=== PATIENT | male | born 1945 | race Caucasian/White ===

== ENCOUNTER 2018-03-28 05:20 | Inpatient (IN) ==
--- NOTE | 2018-03-28 06:55 | ED ---
HPI General Chief complaint: Weakness Stated complaint: Bleeding/evac Time Seen by Provider: 03/28/18 06:37 Source: patient Mode of arrival: EMS Limitations: no limitations History of Present Illness HPI narrative: Patient reports waking up around 2 AM in order to have a bowel movement. He reports rectal bleeding started in the last for couple hours. He takes a baby aspirin daily. He reports colonoscopy within the last 6 months or so however does not recall details, he believes it might of been a polyp. No abdominal pain. No nausea vomiting fever. No chest pain shortness breath or headache. Onset (ago): hour(s) (2) Radiation: non-radiation Severity: mild Related Data Home Medications Medication Instructions Recorded Confirmed aspirin 81 mg PO DAILY 03/28/18 03/28/18 metformin 1,000 mg PO BID 03/28/18 03/28/18 Previous Rx's Medication Instructions Recorded pantoprazole [Protonix] 40 mg PO DAILY 30 Days #30 tab 03/30/18 Allergies Allergy/AdvReac Type Severity Reaction Status Date / Time codeine Allergy Severe burning Verified 03/28/18 05:25 sensation upper trunk area acetaminophen AdvReac Intermediate SHAKING Verified 03/28/18 05:25 hydrocodone AdvReac Intermediate SHAKING Verified 03/28/18 05:25 Review of Systems Except as stated in HPI: all other systems reviewed are negative Constitutional Denies fever(s) PMFSH Medical History Medical History Diabetes (Acute) Hernia (Acute) Melanoma (Acute) Prostate CA (Acute) Surgical History Surgical History History of hernia repair (Acute) Social History Social History Substance History: No History of Abuse Second Hand Smoke Exposure: No Smoking Status: Former smoker Tobacco Type: Cigarettes How Often Do You Have a Drink Containing Alcohol: Never Recent Travel in [facility] within the Last 8 Weeks: No Recent Out of Country Travel within the Last 8 Weeks: No Immunization History Tetanus Immunization: >5 Years Hx Influenza Vaccine This Season: Yes Exam Narrative Exam Narrative: GENERAL: 72-year-old male well-nourished well-developed no acute distress RECTAL: Guaiac positive stool with bright red blood in the rectal wall. Hard stool present SKIN: Focused skin assessment warm/dry. HEAD: Atraumatic. Normocephalic. EYES: Pupils equal and round. No scleral icterus. No injection or drainage. ENT: No nasal bleeding or discharge. Mucous membranes pink and moist. NECK: Trachea midline. No JVD. CARDIOVASCULAR: Regular rate and rhythm. No murmur appreciated. RESPIRATORY: No accessory muscle use. Clear to auscultation. Breath sounds equal bilaterally. GASTROINTESTINAL: Abdomen soft, non-tender, nondistended. Hepatic and splenic margins not palpable. MUSCULOSKELETAL: No obvious deformities. No clubbing. No cyanosis. No edema. NEUROLOGICAL: Awake and alert. No obvious cranial nerve deficits. Motor grossly within normal limits. Normal speech. PSYCHIATRIC: Appropriate mood and affect; insight and judgment normal. Procedures Hemaprompt Stool Procedural Steps Taken: controls appropriately positive and negative Hemaprompt Stool Result: positive Course Initial Documented Vital Signs Temperature 97.9 F 03/28/18 05:26 Pulse Rate 94 H 03/28/18 05:26 Respiratory Rate 20 03/28/18 05:26 Blood Pressure 183/87 H 03/28/18 05:26 Pulse Oximetry 97 03/28/18 05:26 Last Documented Vital Signs Temperature 98.0 F 03/30/18 12:00 Pulse Rate 72 03/30/18 12:00 Respiratory Rate 20 03/30/18 12:00 Blood Pressure 130/66 03/30/18 12:00 Pulse Oximetry 96 03/30/18 12:00 Medical Decision Making MDM Narrative Medical decision making narrative: 72-year-old male with rectal bleed and abdominal pain. Protonix 80 mg IV given. Normal saline solution 100 cc an hour. Pt will be admitted for treatment and workup for GI bleed. Lab Data Result diagrams: 03/30/18 08:50 03/30/18 08:50 Lab Results 03/28/18 03/28/18 03/28/18 Range/Units 05:36 07:05 07:05 WBC 9.0 (4.0-11.0) th/mm3 RBC 4.61 (4.50-5.90) mil/mm3 Hgb 13.9 (13.0-17.0) gm/dL Hct 41.8 (39.0-51.0) % MCV 90.5 (80.0-100.0) fL MCH 30.2 (27.0-34.0) pg MCHC 33.3 (32.0-36.0) % RDW 14.2 (11.6-17.2) % Plt Count 272 (150-450) th/mm3 MPV 8.6 (7.0-11.0) fL Neut % (Auto) 74.0 H (16.0-70.0) % Lymph % (Auto) 16.4 (9.0-44.0) % Archer % (Auto) 5.6 (0.0-8.0) % Eos % (Auto) 3.3 (0.0-4.0) % Baso % (Auto) 0.7 (0.0-2.0) % Neut # (Auto) 6.7 (1.8-7.7) th/mm3 Lymph # (Auto) 1.5 (1.0-4.8) th/mm3 Archer # (Auto) 0.5 (0.0-0.9) th/mm3 Eos # (Auto) 0.3 (0.0-0.4) th/mm3 Baso # (Auto) 0.1 (0.0-0.2) th/mm3 WBC Differential . Differential Comment Auto diff final PT 9.9 (9.8-11.6) sec INR 1.0 Ratio Sodium (136-145) meq/L Potassium (3.5-5.1) meq/L Chloride (98-107) meq/L Carbon Dioxide (21.0-32.0) meq/L Anion Gap (5-15) meq/L BUN (7-18) mg/dL Creatinine (0.60-1.30) mg/dL Estimated GFR (>89) mL/min POC Glucose 136 H (68-110) mg/dl Random Glucose (74-106) mg/dL Calcium (8.5-10.1) mg/dL Total Bilirubin (0.2-1.0) mg/dL AST (15-37) U/L ALT (12-78) U/L Alkaline Phosphatase (45-117) U/L Total Protein (6.4-8.2) g/dL Albumin (3.4-5.0) g/dL Urine Color (Yellw/Straw) Urine Clarity (Clear) Urine pH (5.0-8.5) Ur Specific [place]ari[place] (1.002-1.035) Urine Protein (Neg-Trace) mg/dL Urine Glucose (UA) (Negative) mg/dL Urine Ketones (Negative) mg/dL Urine Occult Blood (Negative) Urine Nitrate (Negative) Urine Bilirubin (Negative) Urine Urobilinogen (Less than 2) mg/dL Ur Leukocyte Esterase (Negative) Urine RBC (0-3) /hpf Urine WBC (0-5) /hpf Blood Type Blood Type Recheck Antibody Screen 03/28/18 03/28/18 03/28/18 Range/Units 07:05 13:07 13:09 WBC (4.0-11.0) th/mm3 RBC (4.50-5.90) mil/mm3 Hgb (13.0-17.0) gm/dL Hct (39.0-51.0) % MCV (80.0-100.0) fL MCH (27.0-34.0) pg MCHC (32.0-36.0) % RDW (11.6-17.2) % Plt Count (150-450) th/mm3 MPV (7.0-11.0) fL Neut % (Auto) (16.0-70.0) % Lymph % (Auto) (9.0-44.0) % Archer % (Auto) (0.0-8.0) % Eos % (Auto) (0.0-4.0) % Baso % (Auto) (0.0-2.0) % Neut # (Auto) (1.8-7.7) th/mm3 Lymph # (Auto) (1.0-4.8) th/mm3 Archer # (Auto) (0.0-0.9) th/mm3 Eos # (Auto) (0.0-0.4) th/mm3 Baso # (Auto) (0.0-0.2) th/mm3 WBC Differential Differential Comment PT (9.8-11.6) sec INR Ratio Sodium 140 (136-145) meq/L Potassium 4.0 (3.5-5.1) meq/L Chloride 103 (98-107) meq/L Carbon Dioxide 26.7 (21.0-32.0) meq/L Anion Gap 10 (5-15) meq/L BUN 13 (7-18) mg/dL Creatinine 0.76 (0.60-1.30) mg/dL Estimated GFR Greater than 89 (>89) mL/min POC Glucose 106 (68-110) mg/dl Random Glucose 120 H (74-106) mg/dL Calcium 9.0 (8.5-10.1) mg/dL Total Bilirubin 0.6 (0.2-1.0) mg/dL AST 20 (15-37) U/L ALT 28 (12-78) U/L Alkaline Phosphatase 71 (45-117) U/L Total Protein 7.8 (6.4-8.2) g/dL Albumin 4.4 (3.4-5.0) g/dL Urine Color Yellow (Yellw/Straw) Urine Clarity Clear (Clear) Urine pH 8.0 (5.0-8.5) Ur Specific [place] 1.029 (1.002-1.035) Urine Protein Negative (Neg-Trace) mg/dL Urine Glucose (UA) Negative (Negative) mg/dL Urine Ketones Negative (Negative) mg/dL Urine Occult Blood Negative (Negative) Urine Nitrate Negative (Negative) Urine Bilirubin Negative (Negative) Urine Urobilinogen Less than 2 (Less than 2) mg/dL Ur Leukocyte Esterase Negative (Negative) Urine RBC 1 (0-3) /hpf Urine WBC 1 (0-5) /hpf Blood Type Blood Type Recheck Antibody Screen 03/28/18 03/28/18 03/28/18 Range/Units 14:26 14:26 17:59 WBC (4.0-11.0) th/mm3 RBC (4.50-5.90) mil/mm3 Hgb 13.3 (13.0-17.0) gm/dL Hct 40.3 (39.0-51.0) % MCV (80.0-100.0) fL MCH (27.0-34.0) pg MCHC (32.0-36.0) % RDW (11.6-17.2) % Plt Count (150-450) th/mm3 MPV (7.0-11.0) fL Neut % (Auto) (16.0-70.0) % Lymph % (Auto) (9.0-44.0) % Archer % (Auto) (0.0-8.0) % Eos % (Auto) (0.0-4.0) % Baso % (Auto) (0.0-2.0) % Neut # (Auto) (1.8-7.7) th/mm3 Lymph # (Auto) (1.0-4.8) th/mm3 Archer # (Auto) (0.0-0.9) th/mm3 Eos # (Auto) (0.0-0.4) th/mm3 Baso # (Auto) (0.0-0.2) th/mm3 WBC Differential Differential Comment PT (9.8-11.6) sec INR Ratio Sodium (136-145) meq/L Potassium (3.5-5.1) meq/L Chloride (98-107) meq/L Carbon Dioxide (21.0-32.0) meq/L Anion Gap (5-15) meq/L BUN (7-18) mg/dL Creatinine (0.60-1.30) mg/dL Estimated GFR (>89) mL/min POC Glucose 135 H (68-110) mg/dl Random Glucose (74-106) mg/dL Calcium (8.5-10.1) mg/dL Total Bilirubin (0.2-1.0) mg/dL AST (15-37) U/L ALT (12-78) U/L Alkaline Phosphatase (45-117) U/L Total Protein (6.4-8.2) g/dL Albumin (3.4-5.0) g/dL Urine Color (Yellw/Straw) Urine Clarity (Clear) Urine pH (5.0-8.5) Ur Specific Darien (1.002-1.035) Urine Protein (Neg-Trace) mg/dL Urine Glucose (UA) (Negative) mg/dL Urine Ketones (Negative) mg/dL Urine Occult Blood (Negative) Urine Nitrate (Negative) Urine Bilirubin (Negative) Urine Urobilinogen (Less than 2) mg/dL Ur Leukocyte Esterase (Negative) Urine RBC (0-3) /hpf Urine WBC (0-5) /hpf Blood Type O Positive Blood Type Recheck Required Antibody Screen Negative 03/28/18 03/28/18 03/29/18 Range/Units 19:22 21:48 07:37 WBC 6.0 (4.0-11.0) th/mm3 RBC 4.04 L (4.50-5.90) mil/mm3 Hgb 13.6 12.0 L (13.0-17.0) gm/dL Hct 41.0 36.1 L (39.0-51.0) % MCV 89.3 (80.0-100.0) fL MCH 29.8 (27.0-34.0) pg MCHC 33.4 (32.0-36.0) % RDW 14.1 (11.6-17.2) % Plt Count 227 (150-450) th/mm3 MPV 8.3 (7.0-11.0) fL Neut % (Auto) 63.6 (16.0-70.0) % Lymph % (Auto) 22.7 (9.0-44.0) % Archer % (Auto) 8.7 H (0.0-8.0) % Eos % (Auto) 4.5 H (0.0-4.0) % Baso % (Auto) 0.5 (0.0-2.0) % Neut # (Auto) 3.8 (1.8-7.7) th/mm3 Lymph # (Auto) 1.4 (1.0-4.8) th/mm3 Archer # (Auto) 0.5 (0.0-0.9) th/mm3 Eos # (Auto) 0.3 (0.0-0.4) th/mm3 Baso # (Auto) 0.0 (0.0-0.2) th/mm3 WBC Differential . Differential Comment Auto diff final PT (9.8-11.6) sec INR Ratio Sodium (136-145) meq/L Potassium (3.5-5.1) meq/L Chloride (98-107) meq/L Carbon Dioxide (21.0-32.0) meq/L Anion Gap (5-15) meq/L BUN (7-18) mg/dL Creatinine (0.60-1.30) mg/dL Estimated GFR (>89) mL/min POC Glucose 144 H (68-110) mg/dl Random Glucose (74-106) mg/dL Calcium (8.5-10.1) mg/dL Total Bilirubin (0.2-1.0) mg/dL AST (15-37) U/L ALT (12-78) U/L Alkaline Phosphatase (45-117) U/L Total Protein (6.4-8.2) g/dL Albumin (3.4-5.0) g/dL Urine Color (Yellw/Straw) Urine Clarity (Clear) Urine pH (5.0-8.5) Ur Specific Darien (1.002-1.035) Urine Protein (Neg-Trace) mg/dL Urine Glucose (UA) (Negative) mg/dL Urine Ketones (Negative) mg/dL Urine Occult Blood (Negative) Urine Nitrate (Negative) Urine Bilirubin (Negative) Urine Urobilinogen (Less than 2) mg/dL Ur Leukocyte Esterase (Negative) Urine RBC (0-3) /hpf Urine WBC (0-5) /hpf Blood Type Blood Type Recheck Antibody Screen 03/29/18 03/29/18 03/29/18 Range/Units 07:37 09:10 12:13 WBC (4.0-11.0) th/mm3 RBC (4.50-5.90) mil/mm3 Hgb (13.0-17.0) gm/dL Hct (39.0-51.0) % MCV (80.0-100.0) fL MCH (27.0-34.0) pg MCHC (32.0-36.0) % RDW (11.6-17.2) % Plt Count (150-450) th/mm3 MPV (7.0-11.0) fL Neut % (Auto) (16.0-70.0) % Lymph % (Auto) (9.0-44.0) % Archer % (Auto) (0.0-8.0) % Eos % (Auto) (0.0-4.0) % Baso % (Auto) (0.0-2.0) % Neut # (Auto) (1.8-7.7) th/mm3 Lymph # (Auto) (1.0-4.8) th/mm3 Archer # (Auto) (0.0-0.9) th/mm3 Eos # (Auto) (0.0-0.4) th/mm3 Baso # (Auto) (0.0-0.2) th/mm3 WBC Differential Differential Comment PT (9.8-11.6) sec INR Ratio Sodium 142 (136-145) meq/L Potassium 3.4 L (3.5-5.1) meq/L Chloride 108 H (98-107) meq/L Carbon Dioxide 24.4 (21.0-32.0) meq/L Anion Gap 10 (5-15) meq/L BUN 8 (7-18) mg/dL Creatinine 0.68 (0.60-1.30) mg/dL Estimated GFR Greater than 89 (>89) mL/min POC Glucose 102 125 H (68-110) mg/dl Random Glucose 108 H (74-106) mg/dL Calcium 8.6 (8.5-10.1) mg/dL Total Bilirubin (0.2-1.0) mg/dL AST (15-37) U/L ALT (12-78) U/L Alkaline Phosphatase (45-117) U/L Total Protein (6.4-8.2) g/dL Albumin (3.4-5.0) g/dL Urine Color (Yellw/Straw) Urine Clarity (Clear) Urine pH (5.0-8.5) Ur Specific [place]ari[place] (1.002-1.035) Urine Protein (Neg-Trace) mg/dL Urine Glucose (UA) (Negative) mg/dL Urine Ketones (Negative) mg/dL Urine Occult Blood (Negative) Urine Nitrate (Negative) Urine Bilirubin (Negative) Urine Urobilinogen (Less than 2) mg/dL Ur Leukocyte Esterase (Negative) Urine RBC (0-3) /hpf Urine WBC (0-5) /hpf Blood Type Blood Type Recheck Antibody Screen 03/29/18 03/29/18 03/30/18 Range/Units 17:02 19:53 08:24 WBC (4.0-11.0) th/mm3 RBC (4.50-5.90) mil/mm3 Hgb (13.0-17.0) gm/dL Hct (39.0-51.0) % MCV (80.0-100.0) fL MCH (27.0-34.0) pg MCHC (32.0-36.0) % RDW (11.6-17.2) % Plt Count (150-450) th/mm3 MPV (7.0-11.0) fL Neut % (Auto) (16.0-70.0) % Lymph % (Auto) (9.0-44.0) % Archer % (Auto) (0.0-8.0) % Eos % (Auto) (0.0-4.0) % Baso % (Auto) (0.0-2.0) % Neut # (Auto) (1.8-7.7) th/mm3 Lymph # (Auto) (1.0-4.8) th/mm3 Archer # (Auto) (0.0-0.9) th/mm3 Eos # (Auto) (0.0-0.4) th/mm3 Baso # (Auto) (0.0-0.2) th/mm3 WBC Differential Differential Comment PT (9.8-11.6) sec INR Ratio Sodium (136-145) meq/L Potassium (3.5-5.1) meq/L Chloride (98-107) meq/L Carbon Dioxide (21.0-32.0) meq/L Anion Gap (5-15) meq/L BUN (7-18) mg/dL Creatinine (0.60-1.30) mg/dL Estimated GFR (>89) mL/min POC Glucose 101 236 H 121 H (68-110) mg/dl Random Glucose (74-106) mg/dL Calcium (8.5-10.1) mg/dL Total Bilirubin (0.2-1.0) mg/dL AST (15-37) U/L ALT (12-78) U/L Alkaline Phosphatase (45-117) U/L Total Protein (6.4-8.2) g/dL Albumin (3.4-5.0) g/dL Urine Color (Yellw/Straw) Urine Clarity (Clear) Urine pH (5.0-8.5) Ur Specific [place] (1.002-1.035) Urine Protein (Neg-Trace) mg/dL Urine Glucose (UA) (Negative) mg/dL Urine Ketones (Negative) mg/dL Urine Occult Blood (Negative) Urine Nitrate (Negative) Urine Bilirubin (Negative) Urine Urobilinogen (Less than 2) mg/dL Ur Leukocyte Esterase (Negative) Urine RBC (0-3) /hpf Urine WBC (0-5) /hpf Blood Type Blood Type Recheck Antibody Screen 03/30/18 03/30/18 Range/Units 08:50 08:50 WBC 7.2 (4.0-11.0) th/mm3 RBC 4.14 L (4.50-5.90) mil/mm3 Hgb 12.5 L (13.0-17.0) gm/dL Hct 37.1 L (39.0-51.0) % MCV 89.5 (80.0-100.0) fL MCH 30.2 (27.0-34.0) pg MCHC 33.8 (32.0-36.0) % RDW 14.3 (11.6-17.2) % Plt Count 255 (150-450) th/mm3 MPV 8.5 (7.0-11.0) fL Neut % (Auto) (16.0-70.0) % Lymph % (Auto) (9.0-44.0) % Archer % (Auto) (0.0-8.0) % Eos % (Auto) (0.0-4.0) % Baso % (Auto) (0.0-2.0) % Neut # (Auto) (1.8-7.7) th/mm3 Lymph # (Auto) (1.0-4.8) th/mm3 Archer # (Auto) (0.0-0.9) th/mm3 Eos # (Auto) (0.0-0.4) th/mm3 Baso # (Auto) (0.0-0.2) th/mm3 WBC Differential Differential Comment PT (9.8-11.6) sec INR Ratio Sodium 141 (136-145) meq/L Potassium 4.0 (3.5-5.1) meq/L Chloride 107 (98-107) meq/L Carbon Dioxide 23.9 (21.0-32.0) meq/L Anion Gap 10 (5-15) meq/L BUN 8 (7-18) mg/dL Creatinine 0.82 (0.60-1.30) mg/dL Estimated GFR Greater than 89 (>89) mL/min POC Glucose (68-110) mg/dl Random Glucose 117 H (74-106) mg/dL Calcium 9.0 (8.5-10.1) mg/dL Total Bilirubin (0.2-1.0) mg/dL AST (15-37) U/L ALT (12-78) U/L Alkaline Phosphatase (45-117) U/L Total Protein (6.4-8.2) g/dL Albumin (3.4-5.0) g/dL Urine Color (Yellw/Straw) Urine Clarity (Clear) Urine pH (5.0-8.5) Ur Specific [place] (1.002-1.035) Urine Protein (Neg-Trace) mg/dL Urine Glucose (UA) (Negative) mg/dL Urine Ketones (Negative) mg/dL Urine Occult Blood (Negative) Urine Nitrate (Negative) Urine Bilirubin (Negative) Urine Urobilinogen (Less than 2) mg/dL Ur Leukocyte Esterase (Negative) Urine RBC (0-3) /hpf Urine WBC (0-5) /hpf Blood Type Blood Type Recheck Antibody Screen Imaging Data Radiologist's impression: Abdomen/Pelvis CT 03/28/18 07:06 CONCLUSION: 1. Large amount of stool in the rectum with moderate distal colonic stool consistent with some degree of constipation/stool impaction. 2. Redemonstration of bilateral nonobstructing renal calyceal calculi which have progressed in the right inferior pole. 3. Decreased hepatic attenuation consistent with hepatic steatosis. 4. Additional ancillary findings, as above. Discharge Plan Discharge Disposition Patient Disposition: 01 Discharge Home Discharge Condition Condition: Stable Discharge Order Discharge Orders: Discharge Order (Routine); Ordered 03/30/18 Ordered By: Roseanne Wood Discharge Details Diagnosis: Acute GI bleeding Physicians Team ED Provider: Paco De Jesus Primary Care Provider: Sacha Rojo Attending Provider: Maribell Bowen Other Providers: Jaymie Kirby Status ED Status: Left Department Discharge Information Discharge Date/Time: 03/28/18 16:02
[2018-03-28 07:24] LABS: Baso # (Auto) 0.1 th/mm3 (0.0-0.2); Baso % (Auto) 0.7 % (0.0-2.0); Eos # (Auto) 0.3 th/mm3 (0.0-0.4); Eos % (Auto) 3.3 % (0.0-4.0); Hematocrit 41.8 % (39.0-51.0); Hemoglobin 13.9 gm/dL (13.0-17.0); Lymph # (Auto) 1.5 th/mm3 (1.0-4.8); Lymph % (Auto) 16.4 % (9.0-44.0); Mean Corpuscular HGB Conc 33.3 % (32.0-36.0); Mean Corpuscular Hemoglobin 30.2 pg (27.0-34.0); Mean Corpuscular Volume 90.5 fL (80.0-100.0); Mean Platelet Volume 8.6 fL (7.0-11.0); Mono # (Auto) 0.5 th/mm3 (0.0-0.9); Mono % (Auto) 5.6 % (0.0-8.0); Neut # (Auto) 6.7 th/mm3 (1.8-7.7); Platelet Count 272 th/mm3 (150-450); Red Blood Count 4.61 mil/mm3 (4.50-5.90); Red Cell Distribution Width 14.2 % (11.6-17.2)
[2018-03-28 07:30] LABS: Prothrombin Time 9.9 sec (9.8-11.6)
[2018-03-28 07:42] LABS: Alanine Aminotransferase 28 U/L (12-78); Albumin 4.4 g/dL (3.4-5.0); Anion Gap 10 meq/L (5-15); Aspartate Aminotransferase 20 U/L (15-37); Blood Urea Nitrogen 13 mg/dL (7-18); Carbon Dioxide 26.7 meq/L (21.0-32.0); Chloride 103 meq/L (98-107); Glomerular Filtration Rate Greater Than 89 mL/min (>89); Glucose,Random 120 mg/dL (74-106); Sodium 140 meq/L (136-145)
[2018-03-28 07:45] LABS: Alkaline Phosphatase 71 U/L (45-117); Total Protein 7.8 g/dL (6.4-8.2)
--- NOTE | 2018-03-28 09:29 | CT ---
EXAM DATE: 03/28/2018 8:25 AM EDT AGE/SEX: 72 years / Male INDICATIONS: Abdominal pain and rectal bleeding. CLINICAL DATA: This is the patient's initial encounter. Patient reports that signs and symptoms have been present for 1 day and indicates a pain score of 5/10. MEDICAL/SURGICAL HISTORY: Diabetes. Prostate cancer. . Hernia. ORAL CONTRAST: No oral contrast ingested. RADIATION DOSE: 14.60 CTDI (mGy) COMPARISON: [facility], CT ABDOMEN AND PELVIS W/O CONTRAST, 05/15/2017. . TECHNIQUE: Multiple contiguous axial images were obtained through the abdomen and pelvis following b olus infusion of 68 ml Omnipaque 350 (iohexol) nonionic water-soluble contrast as a single exam dos e. No oral contrast ingested. Using automated exposure control and adjustment of the mA and/or kV ac cording to patient size, radiation dose was kept as low as reasonably achievable to obtain optimal di agnostic quality images. DICOM format image data is available electronically for review and comparis on. FINDINGS: LOWER LUNGS: Minimal groundglass opacities at the lung bases likely reflecting volume loss. LIVER: Mild diffuse decreased hepatic attenuation without intrahepatic ductal dilatation or focal ma ss. Multiple gallstones in the gallbladder which otherwise appears unremarkable by CT. SPLEEN: Homogeneous density without enlargement. PANCREAS: Unremarkable without mass or calcification. KIDNEYS: Kidneys demonstrate symmetrical enhancement and are symmetrical in size bilaterally. There are scattered bilateral calyceal calculi. These range in size from 2 to 6 mm on the left. There is a grouping of calyceal calculi in the inferior pole the right kidney measuring 6 x 16 mm. This has prog ressed since prior exam. There is no hydronephrosis. 2.4 cm cyst in the inferior pole of the left kid alejandro. ADRENAL GLANDS: Unremarkable. AORTA: Bre-aneurysmal. BOWEL/MESENTERY: Large amount of stool in the rectum with moderate stool in the sigmoid colon. Bowel otherwise appears unremarkable. No significant free fluid or drainable fluid collections. No free ai r. ABDOMINAL WALL: Intact. RETROPERITONEUM: No evidence of adenopathy in the retrocrural, para-aortic, or deep pelvic regions. BLADDER: Contours are smooth. REPRODUCTIVE: Prominent with radiation seeds in place. BONY STRUCTURES: Degenerative spondylosis of the lumbar spine. CONCLUSION: 1. Large amount of stool in the rectum with moderate distal colonic stool consistent with some degre e of constipation/stool impaction. 2. Redemonstration of bilateral nonobstructing renal calyceal calculi which have progressed in the r ight inferior pole. 3. Decreased hepatic attenuation consistent with hepatic steatosis. 4. Additional ancillary findings, as above. Electronically signed by: Kalpesh Bradshaw MD 03/28/2018 9:28 AM EDT
[2018-03-28] MEDS ORDERED: Pantoprazole Inj 80 MG in Sodium Chlor 0.9% Inj 35 ML IV.SIG ONE (10:52)
[2018-03-28] MEDS: Sod Chloride 0.9% Inj 1,000 ML IV.CONT SCH ×4 (11:20→21:53)
--- NOTE | 2018-03-28 11:25 | P.HPFP ---
History of Present Illness Primary Care Physician: Sacha Rojo MD <Maribell Bowen 03/29/18 12:36> Sacha Rojo MD <Roseanne Wood 03/28/18 11:25> Chief Complaint: rectal bleeding <Roseanne Wood 03/28/18 14:27> History of Present Illness: 72 y/o M with hx of DM and prostate CA treated with radiation therapy a couple of years ago, presented to the emergency department with complaints of rectal bleeding that started this morning. Patient states that he noticed bright red blood when wiping at 2AM this morning, but denies any blood dripping into the toilet. He has not experienced rectal bleeding before. Denies current rectal pain or itching. Denies using NSAIDs or other anticoagulation. Now complaining of abdominal pressure, worse on right side and epigastric area, currently 4/10. Patient states it is worse when sitting upright and can get up to 8/10. Patient has a history of constipation, which he associates with this kind of abdominal pain. Last bowel movement 3 days ago, passed hard stool without blood. Patient admits to pain on urination, but denies hematuria, back pain or recent fever. Denies nausea, vomiting, chest pain , or leg pain. Last colonoscopy performed years ago by Dr. Grimaldo. Patient notes that multiple benign polyps were found at the time. No personal or known family history of colon or liver cancer. <Roseanne Wood 03/29/18 00:04> - Diagnosis (1) Acute GI bleeding (2) Painful urination (3) Diabetes mellitus (4) History of prostate cancer (5) Nutrition, metabolism, and development symptoms (6) DVT prophylaxis <Maribell Bowen 03/29/18 12:36> (1) Acute GI bleeding (2) Painful urination (3) Diabetes mellitus (4) History of prostate cancer (5) Nutrition, metabolism, and development symptoms (6) DVT prophylaxis <Roseanne Wood 03/29/18 00:03> Inpatient Certification: I certify that the inpatient services were ordered in accordance with Medicare regulations governing the order. This includes certification that hospital inpatient services are reasonable and necessary and in the case of services not specified as inpatient-only under 42 CFR 419.22(n), that they are appropriately provided as inpatient services in accordance to with the 2-midnight benchmark under 43 CFR 412.3(e) <Maribell Bowen 03/29/18 12:36> I certify that the inpatient services were ordered in accordance with Medicare regulations governing the order. This includes certification that hospital inpatient services are reasonable and necessary and in the case of services not specified as inpatient-only under 42 CFR 419.22(n), that they are appropriately provided as inpatient services in accordance to with the 2-midnight benchmark under 43 CFR 412.3(e) <Roseanne Wood 03/28/18 11:25> Review of Systems Constitutional: Denies body ache(s), Denies chills, Denies fever(s), Denies night sweats <IsraelRoseanne 03/28/18 14:27> Cardiovascular: Denies chest pain, Denies lightheadedness, Denies shortness of breath <IsraelRoseanne 03/28/18 14:27> Respiratory: Denies cough <IsraelRoseanne 03/28/18 14:27> Gastrointestinal: Reports abdominal pain (described as a generalized pressure), Reports nausea (occassional), Denies black, tarry stools, Denies difficulty swallowing, Denies vomiting <Roseanne Wood 03/28/18 14:27> Comments: bright red blood upon wiping. moderate pain with defecation. hx of constipation. <IsraelRoseanne 03/28/18 14:27> Genitourinary: Reports painful urination, Denies blood in urine, Denies urinary incontinence <ShilohbettyRoseanne 03/28/18 14:27> PMFSH - History History Provided By: Patient <Roseanne Wood 03/28/18 11:25> - Medical History Medical History: Medical History (Last Updated 03/28/18 @ 05:29 by Lisandra Wise) Diabetes Hernia Melanoma Prostate CA <Maribell Bowen Uzma 03/29/18 12:36> Medical History (Last Updated 03/28/18 @ 05:29 by Lisandra Wise) Diabetes Hernia Melanoma Prostate CA <IsraelRoseanne Yaya 03/28/18 11:25> - Surgical History Surgical History: Surgical History (Last Updated 03/28/18 @ 13:28 by Roseanne Wood) History of hernia repair <Mraibell Bowen 03/29/18 12:36> Surgical History (Last Updated 03/28/18 @ 13:28 by Roseanne Wood) History of hernia repair <Roseanne Wood 03/28/18 14:27> - Tobacco History Second Hand Smoke Exposure: No <Roseanne Wood 03/28/18 11:25> Tobacco Use In Past 30 Days: No <Roseanne oWod 03/28/18 11:25> Smoking Status: Former smoker <Roseanne Wood 03/28/18 11:25> Tobacco Type: Cigarettes <Roseanne Wood 03/28/18 11:25> - Alcohol History How Often Do You Have a Drink Containing Alcohol: Never <Roseanne Wood 03/10 11:25> - Substance Use History Substance History: No History of Abuse <Roseanne Wood 03/28/18 11:25> - Travel History Recent Travel in the [facility] Within the Last 8 Weeks: No <Roseanne Wood 11:25> Recent Travel Out of the Country Within the Last 8 Weeks: No <Roseanne Wood 03/28/18 11:25> - Immunization History Tetanus Immunization: >5 Years <Roseanne Wood 03/28/18 11:25> Hx Influenza Vaccine This Season: Yes <Roseanne Wood 03/28/18 11:25> Medications and Allergies Allergies Allergy/AdvReac Type Severity Reaction Status Date / Time codeine Allergy Severe burning Verified 03/28/18 05:25 sensation upper trunk area acetaminophen AdvReac Intermediate SHAKING Verified 03/28/18 05:25 hydrocodone AdvReac Intermediate SHAKING Verified 03/28/18 05:25 <Maribell Bowen 03/29/18 12:36> Home Medications Medication Instructions Recorded Confirmed Type aspirin 81 mg PO DAILY 03/28/18 03/28/18 History metformin 1,000 mg PO BID 03/28/18 03/28/18 History <Maribell Bowen 03/29/18 12:36> Active Medications: Active Medications Chlorhexidine Gluconate (Chlorhexidine 2% Cloth) 3 pack [employer] [facility] Stop: 04/01/18 06:44 Dextrose (D50w Vial) 50 ml IV.PUSH UNSCH PRN PRN Reason: PER HYPOGLYCEMIA PROTOCOL Glucagon (Glucagon Inj) 1 mg OTHER PRN PRN PRN Reason: for Hypoglycemia Protocol Sodium Chloride (Ns Inj) 1,000 mls @ 100 mls/hr IV.CONT .Q10H [facility] Last Admin: 03/28/18 21:53 Dose: 100 mls/hr Sodium Chloride (Ns Inj) 1,000 mls @ 135 mls/hr IV.CONT .Q7H25M [facility] Last Admin: 03/28/18 21:52 Dose: Not Given Lactated Ringer's (Lr 1000 Ml Inj) 1,000 mls @ 30 mls/hr IV.SIG .Q24H [facility] Stop: 04/01/18 06:44 Sodium Chloride (Ns Inj) 500 mls @ 30 mls/hr IV.SIG .Q10H [facility] Stop: 04/01/18 06:44 Insulin Aspart (Novolog Insulin Suppl Scale Inj) 0 unit SQ ACHS [facility]; Protocol Last Admin: 03/28/18 21:50 Dose: Not Given Ondansetron HCl (Zofran Odt) 4 mg PO Q6H PRN PRN Reason: NAUSEA Pantoprazole Sodium (Protonix Inj) 40 mg IV.PUSH DAILY [facility] Last Admin: 03/29/18 09:07 Dose: 40 mg Povidone Iodine (Betadine 5% Antisepsis Kit) 1 applicatio EACH [employer] [facility] Stop: 04/01/18 06:44 Sodium Chloride (Ns Flush) 2 ml IV.FLUSH PRN PRN PRN Reason: FLUSH AFTER USING IV ACCESS Sodium Chloride (Ns Flush) 2 ml IV.FLUSH BID [facility] Last Admin: 03/28/18 21:52 Dose: Not Given Sodium Chloride (Ns Flush) 2 ml IV.FLUSH PRN PRN PRN Reason: FLUSH AFTER USING IV ACCESS <Maribell Bowen - 03/29/18 12:36> Active Medications Sodium Chloride (Ns Inj) 1,000 mls @ 100 mls/hr IV.CONT .Q10H [facility] Last Admin: 03/28/18 11:20 Dose: 100 mls/hr Sodium Chloride (Ns Flush) 2 ml IV.FLUSH PRN PRN PRN Reason: FLUSH AFTER USING IV ACCESS <Roseanne Wood - 03/28/18 11:25> Exam Vital signs: Vital Signs 03/28/18 18:00 03/28/18 20:00 03/29/18 00:00 Temperature 97.9 F 97.5 F L 97.8 F Pulse Rate 74 83 81 Respiratory Rate 20 18 18 Blood Pressure 150/77 H 146/72 H 120/59 L Pulse Oximetry 96 96 96 03/29/18 04:00 03/29/18 08:00 Temperature 98 F 97.7 F Pulse Rate 75 73 Respiratory Rate 18 18 Blood Pressure 107/55 L 131/67 Pulse Oximetry 92 L 96 Intake & Output 03/28/18 03/29/18 03/29/18 18:59 06:59 18:59 Intake Total 335 / 335 1360 / 1360 Output Total 800 / 800 400 / 400 Balance -465 / -465 960 / 960 Weight 91 kg 92 kg Intake: IV 335 / 335 1000 / 1000 NS Inj 1,000 ML @ 100 mls/hr IV 300 / 300 1000 / 1000 .CONT .Q10H AB Rx#:[id number] Protonix Inj 80 MG In NS Inj 35 35 / 35 ML @ 420 mls/hr IV.SIG BOLUS ONE Rx#:[id number] Oral 360 / 360 Output: Urine 800 / 800 400 / 400 Other: # Voids 4 Date of Last Bowel Movement 03/28/18 # Bowel Movements 7 Weight On Admission 2.58 kg <Maribell Bowen - 03/29/18 12:36> Vital Signs 03/28/18 05:26 03/28/18 07:31 03/28/18 10:46 Temperature 97.9 F Pulse Rate 94 H 89 86 Respiratory Rate 20 17 16 Blood Pressure 183/87 H 145/76 H 153/78 H Pulse Oximetry 97 97 97 Intake & Output 03/27/18 03/28/18 03/28/18 18:59 06:59 18:59 Weight 92.079 kg <Rosenane Wood 03/28/18 11:25> - Constitutional no acute distress <Roseanne Wood 03/28/18 14:27> Comments: Patient laying in be <Roseanne Wood 03/28/18 14:27> - Routine HEENT Exam Head: Present: normocephalic, atraumatic <[facility] 03/28/18 14:27> Eye: Present: EOMI, PERRL <[facility] 03/28/18 21:10> ENT: Present: mucous membranes moist (no pallor) <[facility] 03/28/18 21:10> - Routine Chest/Breast/Axilla Exam Chest wall: Absent: tenderness <[facility] 03/28/18 14:27> - Routine Respiratory Exam Present: CTA bilaterally. Absent: rhonchi, wheezes, crackles <[facility] 03/28/18 14:27> - Routine Cardiovascular Exam Present: RRR. Absent: murmur <[facility] 03/28/18 14:27> - Routine Abdominal Exam Present: soft, normoactive bowel sounds, tenderness (moderate tenderness to palpation in epigastric area, mild on right side. No CVA tenderness). Absent: mass <[facility] 03/28/18 14:27> - Routine Rectal Exam Visual: Present: normal rectal tone, tenderness. Absent: black stool, bloody stool, ronnie blood <[facility] 03/28/18 14:27> Digital: Present: external hemorrhoid (at 6 o'clock). Absent: anal fissure, laceration <[facility] 03/28/18 14:27> Comments: hemoccult positive <[facility] 03/28/18 14:27> - Routine Extremities Exam Present: pulses intact, normal capillary refill. Absent: edema, calf tenderness <[facility] 03/28/18 14:27> - Routine Skin Exam Present: dry, warm <[facility] 03/28/18 14:27> - Routine Neurological Exam Present: alert, oriented X3, normal speech <[facility] 03/28/18 14:27> Results - Labs Result diagrams: 03/29/18 07:37 03/29/18 07:37 <Maribell Bowen - 03/29/18 12:36> Abnormal lab results 03/28/18 03/28/18 03/29/18 Range/Units 17:59 21:48 07:37 RBC 4.04 L (4.50-5.90) mil/mm3 Hgb 12.0 L (13.0-17.0) gm/dL Hct 36.1 L (39.0-51.0) % [place] % (Auto) 8.7 H (0.0-8.0) % Eos % (Auto) 4.5 H (0.0-4.0) % Potassium (3.5-5.1) meq/L Chloride (98-107) meq/L POC Glucose 135 H 144 H (68-110) mg/dl Random Glucose (74-106) mg/dL 03/29/18 03/29/18 Range/Units 07:37 12:13 RBC (4.50-5.90) mil/mm3 Hgb (13.0-17.0) gm/dL Hct (39.0-51.0) % [place] % (Auto) (0.0-8.0) % Eos % (Auto) (0.0-4.0) % Potassium 3.4 L (3.5-5.1) meq/L Chloride 108 H (98-107) meq/L POC Glucose 125 H (68-110) mg/dl Random Glucose 108 H (74-106) mg/dL Short CBC 03/28/18 03/28/18 03/29/18 Range/Units 14:26 19:22 07:37 WBC 6.0 (4.0-11.0) th/mm3 Hgb 13.3 13.6 12.0 L (13.0-17.0) gm/dL Hct 40.3 41.0 36.1 L (39.0-51.0) % Plt Count 227 (150-450) th/mm3 BMP 03/29/18 07:37 Sodium 142 Potassium 3.4 L Chloride 108 H Carbon Dioxide 24.4 BUN 8 Creatinine 0.68 Calcium 8.6 Urine 03/28/18 Range/Units 13:09 Urine Color Yellow (Yellw/Straw) Urine Clarity Clear (Clear) Urine pH 8.0 (5.0-8.5) Ur Specific [place] 1.029 (1.002-1.035) Urine Protein Negative (Neg-Trace) mg/dL Urine Glucose (UA) Negative (Negative) mg/dL <JessiMaribell R - 03/29/18 12:36> Abnormal lab results 03/28/18 03/28/18 03/28/18 Range/Units 05:36 07:05 07:05 Neut % (Auto) 74.0 H (16.0-70.0) % POC Glucose 136 H (68-110) mg/dl Random Glucose 120 H (74-106) mg/dL Short CBC 03/28/18 Range/Units 07:05 WBC 9.0 (4.0-11.0) th/mm3 Hgb 13.9 (13.0-17.0) gm/dL Hct 41.8 (39.0-51.0) % Plt Count 272 (150-450) th/mm3 BMP 03/28/18 07:05 Sodium 140 Potassium 4.0 Chloride 103 Carbon Dioxide 26.7 BUN 13 Creatinine 0.76 Calcium 9.0 Liver Function 03/28/18 Range/Units 07:05 Total Bilirubin 0.6 (0.2-1.0) mg/dL AST 20 (15-37) U/L ALT 28 (12-78) U/L Alkaline Phosphatase 71 (45-117) U/L Albumin 4.4 (3.4-5.0) g/dL <Roseanne Wood - 03/28/18 11:25> - Imaging Impressions Abdomen/Pelvis CT 03/28/18 07:06 CONCLUSION: 1. Large amount of stool in the rectum with moderate distal colonic stool consistent with some degree of constipation/stool impaction. 2. Redemonstration of bilateral nonobstructing renal calyceal calculi which have progressed in the right inferior pole. 3. Decreased hepatic attenuation consistent with hepatic steatosis. 4. Additional ancillary findings, as above. <Roseanne Wood - 03/28/18 11:25> Caprini VTE Risk Assessment Caprini VTE Risk Assessment: No/Low Risk (score <= 1) <Roseanne Wood - 03/28 14:27> Caprini Risk Assessment Model: Point Value = 1 Point Value = 2 Point Value = 3 Point Value = 5 Age 41-60 Minor surgery BMI > 25 kg/m2 Swollen legs Varicose veins or History of unexplained or recurrent spontaneous Oral contraceptives or hormone replacement Sepsis (< 1 month) Serious lung disease, including pneumonia (< 1 month) Abnormal pulmonary function Acute myocardial infarction Congestive heart failure (< 1 month) History of inflammatory bowel disease Medical patient at bed rest Age 61-74 Arthroscopic surgery Major open surgery (> 45 min) Laparoscopic surgery (> 45 min) Malignancy Confined to bed (> 72 hours) Immobilizing plaster cast Central venous access Age >= 75 History of VTE Family history of VTE Factor V Leiden Prothrombin [id number] Lupus anticoagulant Anticardiolipin antibodies Elevated serum homocysteine Heparin-induced thrombocytopenia Other congenital or acquired thrombophilia Stroke (< 1 month) Elective arthroplasty Hip, pelvis, or leg fracture Acute spinal cord injury (< 1 month) <Maribell Bowen R - 03/29/18 12:36> Point Value = 1 Point Value = 2 Point Value = 3 Point Value = 5 Age 41-60 Minor surgery BMI > 25 kg/m2 Swollen legs Varicose veins or History of unexplained or recurrent spontaneous Oral contraceptives or hormone replacement Sepsis (< 1 month) Serious lung disease, including pneumonia (< 1 month) Abnormal pulmonary function Acute myocardial infarction Congestive heart failure (< 1 month) History of inflammatory bowel disease Medical patient at bed rest Age 61-74 Arthroscopic surgery Major open surgery (> 45 min) Laparoscopic surgery (> 45 min) Malignancy Confined to bed (> 72 hours) Immobilizing plaster cast Central venous access Age >= 75 History of VTE Family history of VTE Factor V Leiden Prothrombin [id number] Lupus anticoagulant Anticardiolipin antibodies Elevated serum homocysteine Heparin-induced thrombocytopenia Other congenital or acquired thrombophilia Stroke (< 1 month) Elective arthroplasty Hip, pelvis, or leg fracture Acute spinal cord injury (< 1 month) <Roseanne Wood B - 03/28/18 11:25> Prophylaxis Regimen: Total Risk Factor Score Risk Level Prophylaxis Regimen 0-1 Low Early ambulation 2 Moderate Order ONE of the following: *Sequential Compression Device (SCD) *Heparin 5000 units SQ BID 3-4 Higher Order ONE of the following medications: *Heparin 5000 units SQ TID *Enoxaparin/Lovenox 40 mg SQ daily (WT < 150 kg, CrCl > 30 mL/min) *Enoxaparin/Lovenox 30 mg SQ daily (WT < 150 kg, CrCl > 10-29 mL/min) *Enoxaparin/Lovenox 30 mg SQ BID (WT < 150 kg, CrCl > 30 mL/min) AND/OR *Sequential Compression Device (SCD) 5 or more Highest Order ONE of the following medications: *Heparin 5000 units SQ TID (Preferred with Epidurals) *Enoxaparin/Lovenox 40 mg SQ daily (WT < 150 kg, CrCl > 30 mL/min) *Enoxaparin/Lovenox 30 mg SQ daily (WT < 150 kg, CrCl > 10-29 mL/min) *Enoxaparin/Lovenox 30 mg SQ BID (WT < 150 kg, CrCl > 30 mL/min) AND *Sequential Compression Device (SCD) <Maribell Bowen - 03/29/18 12:36> Total Risk Factor Score Risk Level Prophylaxis Regimen 0-1 Low Early ambulation 2 Moderate Order ONE of the following: *Sequential Compression Device (SCD) *Heparin 5000 units SQ BID 3-4 Higher Order ONE of the following medications: *Heparin 5000 units SQ TID *Enoxaparin/Lovenox 40 mg SQ daily (WT < 150 kg, CrCl > 30 mL/min) *Enoxaparin/Lovenox 30 mg SQ daily (WT < 150 kg, CrCl > 10-29 mL/min) *Enoxaparin/Lovenox 30 mg SQ BID (WT < 150 kg, CrCl > 30 mL/min) AND/OR *Sequential Compression Device (SCD) 5 or more Highest Order ONE of the following medications: *Heparin 5000 units SQ TID (Preferred with Epidurals) *Enoxaparin/Lovenox 40 mg SQ daily (WT < 150 kg, CrCl > 30 mL/min) *Enoxaparin/Lovenox 30 mg SQ daily (WT < 150 kg, CrCl > 10-29 mL/min) *Enoxaparin/Lovenox 30 mg SQ BID (WT < 150 kg, CrCl > 30 mL/min) AND *Sequential Compression Device (SCD) <Roseanne Wood - 03/28/18 11:25> Assessment and Plan - Assessment (1) Acute GI bleeding Code(s): K92.2 - Gastrointestinal hemorrhage, unspecified Status: Acute (2) Painful urination Code(s): R30.9 - Painful micturition, unspecified Status: Acute (3) Diabetes mellitus Code(s): E11.9 - Type 2 diabetes mellitus without complications (4) History of prostate cancer Code(s): Z85.46 - Personal history of malignant neoplasm of prostate Status: Acute (5) Nutrition, metabolism, and development symptoms Code(s): R63.8 - Other symptoms and signs concerning food and fluid intake Status: Acute (6) DVT prophylaxis Status: Acute <JenniMaribell waldrop Uzma - 03/29/18 12:36> (1) Acute GI bleeding Code(s): K92.2 - Gastrointestinal hemorrhage, unspecified Status: Acute Plan: Patient with bright red blood per rectum for 1 day. Labs: -CBC: H/H stable at 13.9/41.8, will continue to trend -PT/INR within normal limits -Will order T&S Medications: -Will give pantoprazole 40 mg IV for acid suppression -Can give Zofran PRN if nauseated Will consult GI for evaluation of lower GI bleed. (2) Painful urination Code(s): R30.9 - Painful micturition, unspecified Status: Acute Plan: Patient complains of pain on urination. Denies hematuria, subprapubic pain, or CVA tenderness. labs: -Will order UA with reflex to urine culture (3) Diabetes mellitus Code(s): E11.9 - Type 2 diabetes mellitus without complications Plan: Patient has a history of DM for which he takes metformin 1000mg BID. POC glucose was 136. labs: -Continue to monitor BGL medications: -Will place patient on insulin sliding scale while in the hospital -Discontinue home metformin (4) History of prostate cancer Code(s): Z85.46 - Personal history of malignant neoplasm of prostate Status: Acute Plan: Patient has a history of prostate cancer for which he underwent multiple rounds of radiation therapy for. (5) Nutrition, metabolism, and development symptoms Code(s): R63.8 - Other symptoms and signs concerning food and fluid intake Status: Acute Plan: Fluids: Maintenance fluids, NS at 135 mls/hr Nutrition: NPO until seen by GI Electrolytes: No electrolyte abnormalities at present, continue to monitor and correct as needed (6) DVT prophylaxis Status: Acute Plan: Early ambulation. Bilateral SCDs. <Roseanne Wood - 03/29/18 00:03> - Attending Attestation Patient seen and examined with the resident team. The above examination and assessment and plan represent my exam and evaluation of this patient. Rectal bleeding likely secondary to hemorrhoids. He is hemodynamically stable. EGD/ colonoscopy pending. <Maribell Bowen - 03/29/18 12:36>
[2018-03-28] MEDS ORDERED: Dextrose 50% in Water 50 ML Vial IV.PUSH PRN (12:17)
--- NOTE | 2018-03-28 13:09 | P.CONGI ---
History of Present Illness Consult date: 03/28/18 Consult reason: Bright red rectal bleeding with nausea and bloating Chief complaint: Acute GI bleed History of Present Illness: This is an obese 72-year-old male who got up this morning to defecate and had an episode of bright red rectal bleeding. Patient states he does have a history of constipation and does strain at times but is never had any rectal bleeding or hematemesis. At the time of bleeding also noted some nausea with generalized weakness but no vomiting and no syncopal episode. Patient currently has some mild abdominal discomfort to light palpation and moderate amount of bloating. After questioning patient about his bloating symptoms he does note that after eating foods and liquids seem to give him nausea and a full sensation which could be related to some gastroparesis . onset of the symptoms has been over the past few months and more chronic in nature. Patient has no known family history of colon cancer and is also noted to be a poor historian. Patient remembers previous EGD colonoscopy but unknown of date and findings. Patient quit smoking in 1992 and quit drinking alcohol in 1982 no illicit drugs. Currently patient denies any diarrhea no vomiting no headaches and no fever. Labs show hemoglobin 13.9 normal WBC count and normal bilirubin and LFTs. Abdominal CT shows some possible hepatic steatosis and stool noted at the rectal area with possible impaction. Review of Systems All other systems reviewed negative except as stated in HPI PMFSH - History History Provided By: Patient - Medical History Medical History: Medical History (Last Updated 03/28/18 @ 05:29 by Lisandra Wise) Diabetes Hernia Melanoma Prostate CA - Tobacco History Second Hand Smoke Exposure: No Tobacco Use In Past 30 Days: No Smoking Status: Former smoker Tobacco Type: Cigarettes - Alcohol History How Often Do You Have a Drink Containing Alcohol: Never - Substance Use History Substance History: No History of Abuse - Travel History Recent Travel in the [place] Within the Last 8 Weeks: No Recent Travel Out of the Country Within the Last 8 Weeks: No - Immunization History Tetanus Immunization: >5 Years Hx Influenza Vaccine This Season: Yes Medications and Allergies Active Medications: Active Medications Dextrose (D50w Vial) 50 ml IV.PUSH UNSCH PRN PRN Reason: PER HYPOGLYCEMIA PROTOCOL Glucagon (Glucagon Inj) 1 mg OTHER PRN PRN PRN Reason: for Hypoglycemia Protocol Sodium Chloride (Ns Inj) 1,000 mls @ 100 mls/hr IV.CONT .Q10H [facility] Last Admin: 03/28/18 11:20 Dose: 100 mls/hr Sodium Chloride (Ns Inj) 1,000 mls @ 135 mls/hr IV.CONT .Q7H25M [facility] Insulin Aspart (Novolog Insulin Suppl Scale Inj) 0 unit SQ ACHS [facility]; Protocol Ondansetron HCl (Zofran Odt) 4 mg PO Q6H PRN PRN Reason: NAUSEA Pantoprazole Sodium (Protonix Inj) 40 mg IV.PUSH DAILY [facility] Polyethylene Glycol/Electrolytes (Colyte Liq) 0 ml PO ONCE ONE Stop: 03/28/18 15:01 Sodium Chloride (Ns Flush) 2 ml IV.FLUSH PRN PRN PRN Reason: FLUSH AFTER USING IV ACCESS Sodium Chloride (Ns Flush) 2 ml IV.FLUSH BID AB Sodium Chloride (Ns Flush) 2 ml IV.FLUSH PRN PRN PRN Reason: FLUSH AFTER USING IV ACCESS Allergies Allergy/AdvReac Type Severity Reaction Status Date / Time codeine Allergy Severe burning Verified 03/28/18 05:25 sensation upper trunk area acetaminophen AdvReac Intermediate SHAKING Verified 03/28/18 05:25 hydrocodone AdvReac Intermediate SHAKING Verified 03/28/18 05:25 Home Medications Medication Instructions Recorded Confirmed Type aspirin 81 mg PO DAILY 03/28/18 03/28/18 History metformin 1,000 mg PO BID 03/28/18 03/28/18 History Exam Vital signs: Vital Signs 03/28/18 05:26 03/28/18 07:31 03/28/18 10:46 Temperature 97.9 F Pulse Rate 94 H 89 86 Respiratory Rate 20 17 16 Blood Pressure 183/87 H 145/76 H 153/78 H Pulse Oximetry 97 97 97 Intake & Output 03/27/18 03/28/18 03/28/18 18:59 06:59 18:59 Weight 92.079 kg - Constitutional mild distress - Routine HEENT Exam Head: Present: normocephalic, atraumatic Eye: Present: EOMI ENT: Present: mucous membranes moist (Several missing teeth) - Routine Neck Exam Present: supple - Routine Respiratory Exam Present: decreased breath sounds - Routine Cardiovascular Exam Present: RRR - Routine Abdominal Exam Present: soft, normoactive bowel sounds, distended (Soft with some mild fluid wave noted) - Routine Extremities Exam Present: edema (Warm) - Routine Skin Exam Present: intact, rash (Small upper mid to right abdominal quadrant and lower abdomen, patient states chronic) Results - Labs CBC & Chem 7: 03/28/18 07:05 03/28/18 07:05 Labs: Laboratory Results - last 24 hr 03/28/18 03/28/18 03/28/18 05:36 07:05 07:05 WBC 9.0 RBC 4.61 Hgb 13.9 Hct 41.8 MCV 90.5 MCH 30.2 MCHC 33.3 RDW 14.2 Plt Count 272 MPV 8.6 Neut % (Auto) 74.0 H Lymph % (Auto) 16.4 [place] % (Auto) 5.6 Eos % (Auto) 3.3 Baso % (Auto) 0.7 Neut # (Auto) 6.7 Lymph # (Auto) 1.5 [place] # (Auto) 0.5 Eos # (Auto) 0.3 Baso # (Auto) 0.1 WBC Differential . Differential Comment Auto diff final PT 9.9 INR 1.0 Sodium Potassium Chloride Carbon Dioxide Anion Gap BUN Creatinine Estimated GFR POC Glucose 136 H Random Glucose Calcium Total Bilirubin AST ALT Alkaline Phosphatase Total Protein Albumin 03/28/18 07:05 WBC RBC Hgb Hct MCV MCH MCHC RDW Plt Count MPV Neut % (Auto) Lymph % (Auto) [place] % (Auto) Eos % (Auto) Baso % (Auto) Neut # (Auto) Lymph # (Auto) [place] # (Auto) Eos # (Auto) Baso # (Auto) WBC Differential Differential Comment PT INR Sodium 140 Potassium 4.0 Chloride 103 Carbon Dioxide 26.7 Anion Gap 10 BUN 13 Creatinine 0.76 Estimated GFR Greater than 89 POC Glucose Random Glucose 120 H Calcium 9.0 Total Bilirubin 0.6 AST 20 ALT 28 Alkaline Phosphatase 71 Total Protein 7.8 Albumin 4.4 - Imaging Impressions Abdomen/Pelvis CT 03/28/18 07:06 CONCLUSION: 1. Large amount of stool in the rectum with moderate distal colonic stool consistent with some degree of constipation/stool impaction. 2. Redemonstration of bilateral nonobstructing renal calyceal calculi which have progressed in the right inferior pole. 3. Decreased hepatic attenuation consistent with hepatic steatosis. 4. Additional ancillary findings, as above. Assessment and Plan - Plan History of constipation acute on chronic, patient noted some bright red rectal bleeding when straining this a.m. to have a bowel movement does note history of constipation acute on chronic Possible impaction noted at the rectal area per CT Labs show hemoglobin 13.9 normal LFTs Hepatic steatosis probable due to liver shadowing, normal LFTs. Patient is morbid obese Abdominal bloating, acute on chronic but has noted for at least the last few months with some full sensation especially after eating and drinking Nausea, noted primarily with rectal bleeding Previous EGD: In the past but unknown results or timing Patient is diabetic currently takes metformin as well as aspirin 81 mg daily Plan Clear liquids today Consent for EGD colonoscopy in a.m. Leonel prep Check patient for impaction and digitally remove if possible Monitor labs Supportive care PPI Further recommendations to follow Patient was seen per myself and Dr. Kirby, this note was written on her behalf
[2018-03-28] MEDS: Pantoprazole Inj 40 MG Vial IV.PUSH SCH (13:24)
[2018-03-28 13:49] LABS: Bilirubin,Urine Negative (Negative); Clarity,Urine Clear (Clear); Color,Urine Yellow (Yellw/Straw); Glucose,Urine (UA) Negative (Negative); Leukocyte Esterase,Urine Negative (Negative); Nitrite,Urine Negative (Negative); Specific Gravity,Urine 1.029 (1.002-1.035)
[2018-03-28 14:57] LABS: Hematocrit 40.3 % (39.0-51.0); Hemoglobin 13.3 gm/dL (13.0-17.0)
[2018-03-28] MEDS ORDERED: PEG 3350/E-Lyte Soln 4000 ML Bottle PO ONE (15:00)
[2018-03-28] MEDS: Insulin NovoLOG Aspart Correctional Sugar Inj SQ SCH ×2 (18:06→21:50)
[2018-03-28 20:03] LABS: Hemoglobin 13.6 gm/dL (13.0-17.0)
[2018-03-29] MEDS ORDERED: Chlorhexidine Gluconate 2% 1 Pack (2 Cloths) TOPICAL SCH (06:45)
[2018-03-29] MEDS ORDERED: Sodium Chlor 0.9% Inj 500 ML IV.SIG SCH (07:00)
[2018-03-29 08:23] LABS: Baso % (Auto) 0.5 % (0.0-2.0); Eos # (Auto) 0.3 th/mm3 (0.0-0.4); Eos % (Auto) 4.5 % (0.0-4.0); Hematocrit 36.1 % (39.0-51.0); Lymph # (Auto) 1.4 th/mm3 (1.0-4.8); Lymph % (Auto) 22.7 % (9.0-44.0); Mean Corpuscular HGB Conc 33.4 % (32.0-36.0); Mean Corpuscular Hemoglobin 29.8 pg (27.0-34.0); Mean Corpuscular Volume 89.3 fL (80.0-100.0); Mean Platelet Volume 8.3 fL (7.0-11.0); Mono # (Auto) 0.5 th/mm3 (0.0-0.9); Mono % (Auto) 8.7 % (0.0-8.0); Neut # (Auto) 3.8 th/mm3 (1.8-7.7); Neut % (Auto) 63.6 % (16.0-70.0); Platelet Count 227 th/mm3 (150-450); Red Blood Count 4.04 mil/mm3 (4.50-5.90); Red Cell Distribution Width 14.1 % (11.6-17.2)
[2018-03-29 09:02] LABS: Anion Gap 10 meq/L (5-15); Blood Urea Nitrogen 8 mg/dL (7-18); Calcium 8.6 mg/dL (8.5-10.1); Carbon Dioxide 24.4 meq/L (21.0-32.0); Chloride 108 meq/L (98-107); Glomerular Filtration Rate Greater Than 89 mL/min (>89); Glucose,Random 108 mg/dL (74-106); Potassium 3.4 meq/L (3.5-5.1); Sodium 142 meq/L (136-145)
[2018-03-29] MEDS: Pantoprazole Inj 40 MG Vial IV.PUSH SCH (09:07)
--- NOTE | 2018-03-29 11:57 | ECG ---
Date Performed: 03/29/2018 Time Performed: 07:44:06 PTAGE: 72 years EKG: Sinus rhythm Inferior infarct - age undetermined Abnormal ECG NO PREVIOUS TRACING DOCTOR: Cruz Donovan Interpretating Date/Time 03/29/2018 11:56:03
[2018-03-29] MEDS: Insulin NovoLOG Aspart Correctional Sugar Inj SQ SCH ×3 (12:38→21:13)
[2018-03-29] MEDS ORDERED: Potassium Chloride 10 MEQ ER Capsule PO ONE (14:56)
--- NOTE | 2018-03-29 15:10 | P.PNFP ---
Subjective Interval history: Seen and examined this morning. He states that he is doing okay, is still having some abdominal pain. Eager to go to his procedure so that he can eat afterwards. Overnight, he states that his IV infiltrated and he had some edema in his left arm. This is now resolved. He also had many bowel movements after taking GoLYTELY. He was nauseous, but no vomiting. He also states that he has a headache that feels like his head is about to pop off. <Marilyn Coreas G - 03/29/18 15:09> Results - Labs Result diagrams: 03/30/18 08:50 03/30/18 08:50 <Maribell Bowen R - 03/31/18 15:50> Abnormal lab results 03/28/18 03/28/18 03/29/18 Range/Units 17:59 21:48 07:37 RBC 4.04 L (4.50-5.90) mil/mm3 Hgb 12.0 L (13.0-17.0) gm/dL Hct 36.1 L (39.0-51.0) % [place] % (Auto) 8.7 H (0.0-8.0) % Eos % (Auto) 4.5 H (0.0-4.0) % Potassium (3.5-5.1) meq/L Chloride (98-107) meq/L POC Glucose 135 H 144 H (68-110) mg/dl Random Glucose (74-106) mg/dL 03/29/18 03/29/18 Range/Units 07:37 12:13 RBC (4.50-5.90) mil/mm3 Hgb (13.0-17.0) gm/dL Hct (39.0-51.0) % [place] % (Auto) (0.0-8.0) % Eos % (Auto) (0.0-4.0) % Potassium 3.4 L (3.5-5.1) meq/L Chloride 108 H (98-107) meq/L POC Glucose 125 H (68-110) mg/dl Random Glucose 108 H (74-106) mg/dL Short CBC 03/28/18 03/28/18 03/29/18 Range/Units 14:26 19:22 07:37 WBC 6.0 (4.0-11.0) th/mm3 Hgb 13.3 13.6 12.0 L (13.0-17.0) gm/dL Hct 40.3 41.0 36.1 L (39.0-51.0) % Plt Count 227 (150-450) th/mm3 [facility] 03/29/18 07:37 Sodium 142 Potassium 3.4 L Chloride 108 H Carbon Dioxide 24.4 BUN 8 Creatinine 0.68 Calcium 8.6 <Marilyn Coreas - 03/29/18 15:09> - Imaging ITS Impressions Abdomen/Pelvis CT 03/28/18 07:06 CONCLUSION: 1. Large amount of stool in the rectum with moderate distal colonic stool consistent with some degree of constipation/stool impaction. 2. Redemonstration of bilateral nonobstructing renal calyceal calculi which have progressed in the right inferior pole. 3. Decreased hepatic attenuation consistent with hepatic steatosis. 4. Additional ancillary findings, as above. <Marilyn Coreas - 03/29/18 15:09> Physical Exam Vital signs: Intake & Output 03/30/18 03/31/18 03/31/18 18:59 06:59 18:59 Other: Date of Last Bowel Movement 03/29/18 <Maribell Bowen - 03/31/18 15:50> Vital Signs 03/28/18 18:00 03/28/18 20:00 03/29/18 00:00 Temperature 97.9 F 97.5 F L 97.8 F Pulse Rate 74 83 81 Respiratory Rate 20 18 18 Blood Pressure 150/77 H 146/72 H 120/59 L Pulse Oximetry 96 96 96 03/29/18 04:00 03/29/18 08:00 03/29/18 12:00 Temperature 98 F 97.7 F 97.3 F L Pulse Rate 75 73 72 Respiratory Rate 18 18 18 Blood Pressure 107/55 L 131/67 135/71 Pulse Oximetry 92 L 96 96 Intake & Output 03/28/18 03/29/18 03/29/18 18:59 06:59 18:59 Intake Total 335 / 335 1360 / 1360 Output Total 800 / 800 400 / 400 Balance -465 / -465 960 / 960 Weight 91 kg 92 kg Intake: IV 335 / 335 1000 / 1000 NS Inj 1,000 ML @ 100 mls/hr IV 300 / 300 1000 / 1000 .CONT .Q10H AB Rx#:[id number] Protonix Inj 80 MG In NS Inj 35 35 / 35 ML @ 420 mls/hr IV.SIG BOLUS ONE Rx#:[id number] Oral 360 / 360 Output: Urine 800 / 800 400 / 400 Other: # Voids 4 Date of Last Bowel Movement 03/28/18 03/29/18 # Bowel Movements 7 Weight On Admission 2.58 kg <Marilyn Coreas - 03/29/18 15:09> Narrative: GENERAL: Elderly obese white male laying in bed, in no acute distress SKIN: Warm and dry. HEAD: Atraumatic. Normocephalic. EYES: No scleral icterus. No injection or drainage. ENT: No nasal bleeding or discharge. NECK: Trachea midline. No JVD. CARDIOVASCULAR: Regular rate and rhythm. RESPIRATORY: No accessory muscle use. Clear to auscultation. Breath sounds equal bilaterally. GASTROINTESTINAL: Abdomen soft, epigastric and LUQ tenderness, distended. MUSCULOSKELETAL: Extremities without clubbing, cyanosis, or edema. No obvious deformities. NEUROLOGICAL: Awake and alert. No obvious cranial nerve deficits. Motor grossly within normal limits. Five out of 5 muscle strength in the arms and legs. Normal speech. PSYCHIATRIC: Appropriate mood and affect; insight and judgment normal. <Marilyn Coreas - 03/29/18 15:09> Assessment and Plan - Assessment (1) Acute GI bleeding Code(s): K92.2 - Gastrointestinal hemorrhage, unspecified Status: Acute (2) Diabetes mellitus Code(s): E11.9 - Type 2 diabetes mellitus without complications (3) History of prostate cancer Code(s): Z85.46 - Personal history of malignant neoplasm of prostate Status: Acute (4) Painful urination Code(s): R30.9 - Painful micturition, unspecified Status: Acute (5) Nutrition, metabolism, and development symptoms Code(s): R63.8 - Other symptoms and signs concerning food and fluid intake Status: Acute (6) DVT prophylaxis Status: Acute <Maribell Bowen - 03/31/18 15:50> (1) Acute GI bleeding Code(s): K92.2 - Gastrointestinal hemorrhage, unspecified Status: Acute Plan: Patient with bright red blood per rectum for 1 day. H&H continued to be stable overnight. Labs: -CBC: H/H stable at 13.9/41.8 -PT/INR within normal limits Medications: -Pantoprazole 40 mg IV for acid suppression -Zofran PRN for nausea GI consult, appreciate recommendations -Will go for EGD and colonoscopy today, status post GoLYTELY administered yesterday evening -N.p.o. currently -Will likely advance diet after procedure (2) Diabetes mellitus Code(s): E11.9 - Type 2 diabetes mellitus without complications Plan: Patient has a history of DM for which he takes metformin 1000mg BID. POC glucose was 136. -Hold home metformin -Bedside glucose checks -NovoLog sliding scale insulin -Hypoglycemia protocol (3) History of prostate cancer Code(s): Z85.46 - Personal history of malignant neoplasm of prostate Status: Acute Plan: Patient has a history of prostate cancer for which he underwent multiple rounds of radiation therapy for. (4) Painful urination Code(s): R30.9 - Painful micturition, unspecified Status: Acute Plan: Patient complains of pain on urination. Denies hematuria, subprapubic pain, or CVA tenderness. labs: UA WNL (5) Nutrition, metabolism, and development symptoms Code(s): R63.8 - Other symptoms and signs concerning food and fluid intake Status: Acute Plan: Fluids: Maintenance fluids, NS at 135 mls/hr Nutrition: NPO until seen by GI Electrolytes: No electrolyte abnormalities at present, continue to monitor and correct as needed (6) DVT prophylaxis Status: Acute Plan: Early ambulation. Bilateral SCDs. <Marilyn Coreas - 03/29/18 14:41> - Assessment and Plan 72-year-old white male with a past medical history of diabetes who presented with bright red blood per rectum. Going for EGD and colonoscopy today. Will discharge upon clearance by GI. <Marilyn Coreas - 03/29/18 15:09> Discussed Condition With: Dr. Bowen, Dr. Wood, and Dr. Zamudio <Marilyn Coreas - 03/29/18 15:09> - Attending Attestation The exam, history, and the medical decision-making described in the above note were completed with the assistance of the resident physician. I reviewed and agree with the findings presented. I attest that I had a [id number] encounter with the patient on the same day, and personally performed and documented my assessment and findings in the medical record. 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 Diabetes mellitus complication status : with unspecified complications Qualified Code(s): E11.8 - Type 2 diabetes mellitus with unspecified complications <Marilyn Coreas - Last Filed: 03/29/18 14:41> (2) Diabetes mellitus Qualifiers: Diabetes mellitus type: type 2 Diabetes mellitus penitentiary insulin use: unspecified local intermodal truck driver insulin use status Diabetes mellitus complication status : with unspecified complications Qualified Code(s): E11.8 - Type 2 diabetes mellitus with unspecified complications <Maribell Bowen - Last Filed: 03/31/18 15:50> (2) Diabetes mellitus Qualifiers: Diabetes mellitus type: type 2 Diabetes mellitus penitentiary insulin use: unspecified penitentiary insulin use status Diabetes mellitus complication status : with unspecified complications Qualified Code(s): E11.8 - Type 2 diabetes mellitus with unspecified complications
[2018-03-29] MEDS ORDERED: Lidocaine PF 1% Inj 5 ML Syringe INFILTRATN ONE (16:03)
--- NOTE | 2018-03-29 17:06 | GIPROC ---
[facility] [address] [facility]. [facility], [address] COLONOSCOPY PROCEDURE REPORT EXAM DATE: 03/29/2018 PATIENT NAME: Dequan Solomon MR #: [id number] BIRTHDATE: 1945 ENDOSCOPIST: Jaymie Kirby MD ORDER #: [id number] PLASTICS TOOLING ENGINEER: Naida Brink STATUS: inpatient INDICATIONS: The patient is a 72 yr old male here for a colonoscopy due to rectal bleeding PROCEDURE PERFORMED: Colonoscopy, diagnostic Colonoscopy with ablation MEDICATIONS: None and Per Anesthesia. PREP QUALITY: good PREP TYPE:Other: ESTIMATED BLOOD LOSS: None CONSENT: The patient understands the risks and benefits of the procedure and understands that these risks include, but are not limited to: sedation, allergic reaction, infection, perforation and/or bleeding. Alternative means of evaluation and treatment include, among others: physical exam, x-rays, and/or surgical intervention. The patient elects to proceed with this endoscopic procedure. medical equipment was checked for proper function. Hand hygiene and appropriate measures for infection prevention was taken. After the risks, benefits and alternatives of the procedure were thoroughly explained, Informed consent was verified, confirmed and timeout was successfully executed by the treatment team. A digital exam revealed hemorrhoids The Pentax EC-[id number] endoscope was introduced through the anus and advanced to the cecum, which was identified by both the appendix and ileocecal valve. The instrument was then slowly withdrawn as the colon was fully examined. COLON FINDINGS: Telangiectasia rectum-s/p ablation with apc. Retroflexed views revealed internal hemorrhoids and Retroflexed views revealed small internal hemorrhoids The scope was then completely withdrawn from the patient and the procedure terminated. PROCEDURE WITHDRAWAL TIME:6minutes ADVERSE EVENTS: There were no complications. IMPRESSIONS: 1. Telangiectasia rectum-s/p ablation with apc 2. Retroflexed views revealed internal hemorrhoids 3. Retroflexed views revealed small internal hemorrhoids 4. Revealed hemorrhoids RECOMMENDATIONS: 1. Benefiber 2 tsp daily 2. Yearly rectal exams 3. Probiotics from any [facility] or health food store 4. Hydrocortisone supp bid RECALL: Return 5 years Colonoscopy Jaymie Kirby MD eSigned: Jaymie Kirby MD 03/29/2018 5:05 PM cc: PATIENT NAME: Dequan Solomon MR#: [id number]
--- NOTE | 2018-03-29 17:07 | GIPROC ---
[facility] [address] [facility]. [facility], [address] EGD PROCEDURE REPORT EXAM DATE: 03/29/2018 PATIENT NAME: Dequan Solomon MR #: [id number] BIRTHDATE: 1945 ATTENDING: Jaymie Kirby MD ORDER #: [id number] CONCRETE MIXER: Naida Brink STATUS: inpatient INDICATIONS: The patient is a 72 yr old male here for an EGD due to bloating PROCEDURE PERFORMED: EGD w/ biopsy MEDICATIONS: None and Per Anesthesia. TOPICAL ANESTHETIC: none CONSENT: The patient understands the risks and benefits of the procedure and understands that these risks include, but are not limited to: sedation, allergic reaction, infection, perforation and/or bleeding. Alternative means of evaluation and treatment include, among others: physical exam, x-rays, and/or surgical intervention. The patient elects to proceed with this endoscopic procedure. medical equipment was checked for proper function. Hand hygiene and appropriate measures for infection prevention was taken. After the risks, benefits and alternatives of the procedure were thoroughly explained, Informed consent was verified, confirmed and timeout was successfully executed by the treatment team. The patient was anesthetized with topical anesthesia and the EC-[id number] (Pedi C) endoscope was introduced through the mouth and advanced to the second portion of the duodenum. Retroflexed views revealed a hiatal hernia The gastroscope was then slowly withdrawn and removed. Gastritis antrum-biopsy esophagitis distal esophagus-biopsy. ADVERSE EVENTS: There were no complications. IMPRESSIONS: 1. Gastritis antrum-biopsy esophagitis distal esophagus-biopsy 2. Retroflexed views revealed a hiatal hernia RECOMMENDATIONS: 1. Await biopsy results. Biopsy results will not be ready for 7-10 days. If you don't hear from us in two weeks, call our office for biopsy results. 2. Anti-reflux regimen 3. Continue PPI PATIENT CONDITION: stable DISPOSITION: Inpatient REPEAT EXAM: Return 3 years EGD Jaymie Kirby MD eSigned: Jaymie Kirby MD 03/29/2018 5:07 PM cc:
[2018-03-29] MEDS: Hydrocortisone Acetate 25 MG Supp RECTAL SCH (21:14)
[2018-03-30] MEDS: Pantoprazole Inj 40 MG Vial IV.PUSH SCH (08:48)
[2018-03-30] MEDS: Hydrocortisone Acetate 25 MG Supp RECTAL SCH (08:49)
[2018-03-30] MEDS: Insulin NovoLOG Aspart Correctional Sugar Inj SQ SCH (09:00)
--- NOTE | 2018-03-30 09:23 | P.PNFP ---
Subjective Interval history: Patient seen and examined at 8:30 today. Patient had no current complains and would like to return home. We explained the results of his endoscopy and colonoscopy performed yesterday. We also explained the recommendations given by the gift shop manager, including to continue the PPI for acid suppression and the steroid suppository to decrease inflammation, decreasing intake of acidic food, increasing his fiber intake, and taking an over the counter probiotic at home. He is agreeable with this plan. Denies fever , chills, nausea, vomiting, chest pain, shortness of breath or leg pain. <Roseanne Wood - 03/30/18 09:22> Results - Labs Result diagrams: 03/30/18 08:50 03/30/18 08:50 <Maribell Bowen 03/31/18 15:53> Abnormal lab results 03/29/18 03/29/18 03/30/18 Range/Units 12:13 19:53 08:24 POC Glucose 125 H 236 H 121 H (68-110) mg/dl <Roseanne Wood 03/30/18 09:22> Physical Exam Vital signs: Intake & Output 03/30/18 03/31/18 03/31/18 18:59 06:59 18:59 Other: Date of Last Bowel Movement 03/29/18 <Maribell Bowen - 03/31/18 15:53> Vital Signs 03/29/18 12:00 03/29/18 16:50 03/29/18 17:00 Temperature 97.3 F L 98 F Pulse Rate 72 70 71 Respiratory Rate 18 15 16 Blood Pressure 135/71 134/70 130/72 Pulse Oximetry 96 100 95 03/29/18 17:10 03/29/18 20:00 03/30/18 00:00 Temperature 97.8 F 97.5 F L 98 F Pulse Rate 71 64 Respiratory Rate 16 18 18 Blood Pressure 132/70 126/60 129/66 Pulse Oximetry 96 96 95 03/30/18 04:00 Temperature 98.0 F Pulse Rate 68 Respiratory Rate 18 Blood Pressure 118/61 Pulse Oximetry 94 L Intake & Output 03/29/18 03/30/18 03/30/18 18:59 06:59 18:59 Intake Total 800 / 800 442 / 442 Output Total 400 / 400 1300 / 1300 Balance 400 / 400 -858 / -858 Weight 92.1 kg Intake: Oral 442 / 442 Anesthesia Amount 800 / 800 Output: Urine 400 / 400 1300 / 1300 Other: Date of Last Bowel Movement 03/29/18 [facility] 09:22> Narrative: Well nourished male, sitting up in bed watching television on exam [facility] 03/30/18 09:22> - Constitutional no acute distress, cooperative <[facility] 03/30/18 09:22> - Routine HEENT Exam Head: Present: normocephalic, atraumatic <[facility] 03/30/18 09:22> Eye: Present: EOMI. Absent: scleral injection <[facility] 03/30/18 09: 22> - Routine Respiratory Exam Present: CTA bilaterally. Absent: rhonchi, stridor, wheezes, crackles <[facility] 03/30/18 09:22> - Routine Cardiovascular Exam Present: RRR. Absent: murmur <[facility] 03/30/18 09:22> - Routine Abdominal Exam Present: soft, normoactive bowel sounds, tenderness (mild tenderness in epigastric area, less than on admission) <[facility] 03/30/18 09:22> - Routine Extremities Exam Present: pulses intact. Absent: edema, calf tenderness <[facility] 05/10 09:22> - Routine Skin Exam Present: dry, warm <[facility] 03/30/18 09:22> - Routine Neurological Exam Present: alert, oriented X3 <[facility] 03/30/18 09:22> - Routine Psychiatric Exam Present: normal affect <[facility] 03/30/18 09:22> Assessment and Plan - Assessment (1) Acute GI bleeding Code(s): K92.2 - Gastrointestinal hemorrhage, unspecified Status: Acute (2) Diabetes mellitus Code(s): E11.9 - Type 2 diabetes mellitus without complications (3) History of prostate cancer Code(s): Z85.46 - Personal history of malignant neoplasm of prostate Status: Acute (4) Painful urination Code(s): R30.9 - Painful micturition, unspecified Status: Acute (5) Nutrition, metabolism, and development symptoms Code(s): R63.8 - Other symptoms and signs concerning food and fluid intake Status: Acute (6) DVT prophylaxis Status: Acute <Maribell Bowen - 03/31/18 15:53> (1) Acute GI bleeding Code(s): K92.2 - Gastrointestinal hemorrhage, unspecified Status: Acute Plan: Patient with bright red blood per rectum for 1 day. H&H continued to be stable overnight. No resolved. EGD/colonoscopy performed on 03/29. Labs: -CBC: H/H stable at 13.9/41.8 -PT/INR within normal limits Medications: -Pantoprazole 40 mg IV for acid suppression, will convert to PO upon discharge. -Zofran PRN for nausea GI consult, appreciate recommendations -EGD showed gastritis and gastritis. Biopsies taken, will update patient on results in 7-10 days. Recommended continuation of PPI and acid reduction regiment. Recommended follow up EGD in 3 years. -Colonoscopy showed internal hemorrhoids and telangiectasia rectum-s/p ablation with apc. Recommended Hydrocortisone supp two times dailys, Benefiber 2 tsp daily, and Probiotics from any [facility] or [employer] store. Recommended yearly rectal exams. Recommened repeat colonoscopy in 5 years. -Tolerating diabetic diet (2) Diabetes mellitus Code(s): E11.9 - Type 2 diabetes mellitus without complications Plan: Patient has a history of DM for which he takes metformin 1000mg BID. POC glucose was last 121. -Hold home metformin, can restart at home. -Bedside glucose checks, will in hospital. -NovoLog sliding scale insulin, while in hospital. -Hypoglycemia protocol (3) History of prostate cancer Code(s): Z85.46 - Personal history of malignant neoplasm of prostate Status: Acute Plan: Patient has a history of prostate cancer for which he underwent multiple rounds of radiation therapy for. (4) Painful urination Code(s): R30.9 - Painful micturition, unspecified Status: Acute Plan: Patient complains of pain on urination. Denies hematuria, subprapubic pain, or CVA tenderness. labs: UA WNL (5) Nutrition, metabolism, and development symptoms Code(s): R63.8 - Other symptoms and signs concerning food and fluid intake Status: Acute Plan: Fluids: Maintenance fluids, NS at 135 mls/hr Nutrition: Diabetic diet, tolerating well following procedure. Electrolytes: No electrolyte abnormalities at present, continue to monitor and correct as needed (6) DVT prophylaxis Status: Acute Plan: Early ambulation. Bilateral SCDs. <Roseanne Wood - 03/30/18 09:09> - Assessment and Plan 72-year-old white male with a past medical history of diabetes who presented with bright red blood per rectum. Underwent EGD and colonoscopy yesterday. To be discharged today. <Roseanne Wood - 03/30/18 09:22> - Attending Attestation The exam, history, and the medical decision-making described in the above note were completed with the assistance of the resident physician. I reviewed and agree with the findings presented. I attest that I had a [id number] encounter with the patient on the same day, and personally performed and documented my assessment and findings in the medical record. <Maribell Bowen - 03/31/18 15:53> <Roseanne Wood - Last Filed: 03/30/18 09:09> (2) Diabetes mellitus Qualifiers: Diabetes mellitus type: type 2 Diabetes mellitus squirrel man insulin use: unspecified squirrel man insulin use status Diabetes mellitus complication status : with unspecified complications Qualified Code(s): E11.8 - Type 2 diabetes mellitus with unspecified complications <Maribell Bowen - Last Filed: 03/31/18 15:53> (2) Diabetes mellitus Qualifiers: Diabetes mellitus type: type 2 Diabetes mellitus senior care insulin use: unspecified senior care insulin use status Diabetes mellitus complication status : with unspecified complications Qualified Code(s): E11.8 - Type 2 diabetes mellitus with unspecified complications <Roseanne Wood B - Last Filed: 03/30/18 09:09> (2) Diabetes mellitus Qualifiers: Diabetes mellitus type: type 2 Diabetes mellitus senior care insulin use: unspecified senior care insulin use status Diabetes mellitus complication status : with unspecified complications Qualified Code(s): E11.8 - Type 2 diabetes mellitus with unspecified complications <Maribell Bowen R - Last Filed: 03/31/18 15:53> (2) Diabetes mellitus Qualifiers: Diabetes mellitus type: type 2 Diabetes mellitus senior care insulin use: unspecified squirrel man insulin use status Diabetes mellitus complication status : with unspecified complications Qualified Code(s): E11.8 - Type 2 diabetes mellitus with unspecified complications
[2018-03-30 09:37] LABS: Hematocrit 37.1 % (39.0-51.0); Hemoglobin 12.5 gm/dL (13.0-17.0); Mean Corpuscular HGB Conc 33.8 % (32.0-36.0); Mean Corpuscular Hemoglobin 30.2 pg (27.0-34.0); Mean Corpuscular Volume 89.5 fL (80.0-100.0); Mean Platelet Volume 8.5 fL (7.0-11.0); Platelet Count 255 th/mm3 (150-450); Red Blood Count 4.14 mil/mm3 (4.50-5.90); Red Cell Distribution Width 14.3 % (11.6-17.2); White Blood Count 7.2 th/mm3 (4.0-11.0)
[2018-03-30 09:54] LABS: Anion Gap 10 meq/L (5-15); Blood Urea Nitrogen 8 mg/dL (7-18); Carbon Dioxide 23.9 meq/L (21.0-32.0); Chloride 107 meq/L (98-107); Glomerular Filtration Rate Greater Than 89 mL/min (>89); Glucose,Random 117 mg/dL (74-106); Sodium 141 meq/L (136-145)
--- NOTE | 2018-04-13 12:02 | P.DS ---
Date of admission: 03/28/18 11:15 Primary care physician: Sacha Rojo MD Brief History from admission: 72 y/o M with hx of DM and prostate CA treated with radiation therapy a couple of years ago, presented to the emergency department with complaints of rectal bleeding that started this morning. Patient states that he noticed bright red blood when wiping at 2AM this morning, but denies any blood dripping into the toilet. He has not experienced rectal bleeding before. Denies current rectal pain or itching. Denies using NSAIDs or other anticoagulation. Now complaining of abdominal pressure, worse on right side and epigastric area, currently 4/10. Patient states it is worse when sitting upright and can get up to 8/10. Patient has a history of constipation, which he associates with this kind of abdominal pain. Last bowel movement 3 days ago, passed hard stool without blood. Patient admits to pain on urination, but denies hematuria, back pain or recent fever. Denies nausea, vomiting, chest pain, or leg pain. Last colonoscopy performed years ago by Dr. Grimaldo. Patient notes that multiple benign polyps were found at the time. No personal or known family history of colon or liver cancer. DS: Diagnosis - Discharge Diagnosis (1) Acute GI bleeding Status: Acute (2) Diabetes mellitus (3) History of prostate cancer Status: Acute (4) Painful urination Status: Acute (5) Nutrition, metabolism, and development symptoms Status: Acute (6) DVT prophylaxis Status: Acute DS: Medications - Discharge Medications Prescriptions: hydrocortisone acetate [Anusol-HC] 25 mg MT BID 15 Days #30 ea pantoprazole [Protonix] 40 mg PO DAILY 30 Days #30 tab DS: Summary Hospital Course: 72 y/o M with hx of DM and prostate CA treated with radiation therapy a couple of years ago, presented to the emergency department with complaints of rectal bleeding that started that morning. CT abdomen/pelvis showed a large amount of stool in the rectum with moderate distal colonic stool consistent with some degree of constipation/stool impaction. Hemoccult was positive. GI was consulted. EGD showed gastritis. Biopsies were taken, GI will update patient on results. Recommended continuation of PPI and acid reduction regimen. Recommended follow up EGD in 3 years. Colonoscopy showed internal hemorrhoids and telangiectasia rectum-s/p ablation with apc. Recommended Hydrocortisone supp two times dailys, Benefiber 2 tsp daily, and Probiotics from any [employer] or [employer] food store. Recommended yearly rectal exams. Recommended repeat colonoscopy in 5 years. Patient was d/c'd home on 03/30. - Time Spent with Patient Total time spent providing and/or coordinating discharge services: - Quality: VTE Deep Vein Thrombosis/Pulmonary Embolism Present on Admission: No Results Procedures completed during hospitalization: EGD and colonoscopy on 03/29. - Impressions ITS Impressions Abdomen/Pelvis CT 03/28/18 07:06 CONCLUSION: 1. Large amount of stool in the rectum with moderate distal colonic stool consistent with some degree of constipation/stool impaction. 2. Redemonstration of bilateral nonobstructing renal calyceal calculi which have progressed in the right inferior pole. 3. Decreased hepatic attenuation consistent with hepatic steatosis. 4. Additional ancillary findings, as above. Discharge Plan - Discharge Disposition Patient Disposition: Discharge Home - Discharge Condition Condition: Stable - Discharge Order Discharge Orders: Discharge Order (Routine); Ordered 03/30/18 Ordered By: Roseanne Wood - Physicians Team Primary Care Provider: Sacha Rojo Attending Provider: Maribell Bowen Other Providers: Jaymie Kirby MD
== END 2018-03-30 16:04 | disposition home or self-care (01) ==
LOC: NEPE 05:20 → NEDA 11:15 → N04 16:12
PROVIDERS: ADMIT Family Medicine; ATTEND Family Medicine
PROC: COLONOS (2018-03-29 11:30)

== ENCOUNTER 2018-08-18 20:47 | Inpatient (IN) ==
--- NOTE | 2018-08-18 21:58 | XR ---
EXAM DATE: 08/18/2018 9:55 PM EST AGE/SEX: 73 years / Male INDICATIONS: Fever CLINICAL DATA: This is the patient's initial encounter. Patient reports that signs and symptoms have been present for 1 day and indicates a pain score of 0/10. MEDICAL/SURGICAL HISTORY: . Diabetes. Prostate cancer None. COMPARISON: No prior exams available for comparison. FINDINGS: A single AP view of the chest demonstrates the lungs to be symmetrically aerated without evidence of mass, infiltrate or effusion. The cardiomediastinal contours are unremarkable. Osseous structures a re intact. CONCLUSION: No acute cardiopulmonary disease Electronically signed by: Aime Lam MD 08/18/2018 9:56 PM EST
[2018-08-18 22:22] LABS: Baso # (Auto) 0.1 th/mm3 (0.0-0.2); Baso % (Auto) 0.8 % (0.0-2.0); Eos # (Auto) 0.3 th/mm3 (0.0-0.4); Eos % (Auto) 4.1 % (0.0-4.0); Hematocrit 37.6 % (39.0-51.0); Hemoglobin 12.9 gm/dL (13.0-17.0); Lymph # (Auto) 1.5 th/mm3 (1.0-4.8); Mean Corpuscular HGB Conc 34.2 % (32.0-36.0); Mean Corpuscular Hemoglobin 30.5 pg (27.0-34.0); Mean Corpuscular Volume 89.1 fL (80.0-100.0); Mean Platelet Volume 7.7 fL (7.0-11.0); Mono # (Auto) 0.8 th/mm3 (0.0-0.9); Mono % (Auto) 10.2 % (0.0-8.0); Neut # (Auto) 5.2 th/mm3 (1.8-7.7); Neut % (Auto) 65.9 % (16.0-70.0); Platelet Count 296 th/mm3 (150-450); Red Blood Count 4.22 mil/mm3 (4.50-5.90); Red Cell Distribution Width 13.9 % (11.6-17.2); White Blood Count 7.8 th/mm3 (4.0-11.0)
--- NOTE | 2018-08-18 22:23 | ED ---
HPI General Chief complaint: Urogenital-Male Stated complaint: stent removal today-urogenital pain Time Seen by Provider: 08/18/18 21:39 Source: patient and old records reviewed Mode of arrival: ambulatory Limitations: no limitations History of Present Illness HPI Narrative: The patient is a 73-year-old male with diabetes GI bleed and prostate cancer status post stent removal this a.m. by Dr. Dejesus at [facility] presented with complaint of left lower abdominal pain. States that he felt weak and feverish at home for which she took 2 Tylenol. Pain got worse after he took the Tylenol and he talked to family members who advised him to come to the hospital. He felt feverish but he did not check his temperature. Admits to urinary incontinence. No hematuria. MD Complaint: Reports dysuria Onset (ago): hour(s) (5) Duration: constant Location: Reports abdomen Severity: severe Severity scale (1-10): 8 Quality: Reports aching and dull Relieving factors: none Exacerbating factors: none Reports recent surgery; Denies indwelling catheter Reports fever and incontinence; Denies blood in urine and dysuria Related Data Home Medications Medication Instructions Recorded Confirmed aspirin 81 mg PO DAILY 03/28/18 08/18/18 metformin 1,000 mg PO BID 03/28/18 08/18/18 pantoprazole 40 mg PO DAILY 08/02/18 08/18/18 Allergies Allergy/AdvReac Type Severity Reaction Status Date / Time codeine Allergy Severe burning Verified 08/18/18 21:34 sensation upper trunk area acetaminophen AdvReac Intermediate SHAKING Verified 08/18/18 21:34 hydrocodone AdvReac Intermediate SHAKING Verified 08/18/18 21:34 Review of Systems ROS: all other systems reviewed are negative Constitutional Denies body ache(s), Reports fatigue, Reports fever(s) (subjective), Reports malaise and Denies weakness Gastrointestinal Reports abdominal pain, Denies hematochezia, Denies cramping and Denies nausea Genitourinary Reports system reviewed and no additional complaints, except as docu [facility] Medical History Medical History Diabetes (Acute) Hernia (Acute) Kidney stones (Acute) Melanoma (Acute) Prostate CA (Acute) Surgical History Surgical History History of hernia repair (Acute) History of renal stent (Acute) Hx of appendectomy (Acute) Social History Social History Substance History: No History of Abuse Second Hand Smoke Exposure: No Smoking Status: Former smoker Tobacco Type: Cigarettes How Often Do You Have a Drink Containing Alcohol: Never Recent Travel in [facility] within the Last 8 Weeks: No Recent Out of Country Travel within the Last 8 Weeks: No Immunization History Tetanus Immunization: <5 Years Exam Narrative Exam Narrative: GENERAL: Alert and oriented in no distress well-nourished well- developed. SKIN: Focused skin assessment warm/dry. HEAD: Atraumatic. Normocephalic. EYES: Pupils equal and round. No scleral icterus. No injection or drainage. ENT: No nasal bleeding or discharge. Mucous membranes pink and moist. NECK: Trachea midline. No JVD. CARDIOVASCULAR: Regular rate and rhythm. No murmur appreciated. RESPIRATORY: No accessory muscle use. Clear to auscultation. Breath sounds equal bilaterally. GASTROINTESTINAL: Obese abdomen soft, tenderness to palpation on the suprapubic area and left lower quadrant. nondistended. Hepatic and splenic margins not palpable. MUSCULOSKELETAL: No obvious deformities. No clubbing. No cyanosis. No edema. NEUROLOGICAL: Awake and alert. No obvious cranial nerve deficits. Motor grossly within normal limits. Normal speech. PSYCHIATRIC: Appropriate mood and affect; insight and judgment normal. Course Reevaluation(s) Reevaluation #1: sleeping comfortably in no distress. Stable vitals. Time: 03:13 Initial Documented Vital Signs Temperature 97.4 F L 08/18/18 21:28 Pulse Rate 103 H 08/18/18 21:28 Respiratory Rate 18 08/18/18 21:28 Blood Pressure 134/80 08/18/18 21:28 Pulse Oximetry 97 08/18/18 21:28 Last Documented Vital Signs Temperature 98.2 F 08/19/18 00:39 Pulse Rate 85 08/19/18 00:39 Respiratory Rate 16 08/19/18 00:39 Blood Pressure 136/75 08/19/18 00:39 Pulse Oximetry 100 08/19/18 00:39 Discharge Plan Discharge Disposition Patient Disposition: 30 Still Patient Discharge Condition Condition: Good Discharge Details Diagnosis: Acute UTI, Acidosis, lactic Physicians Team ED Provider: Elian Justice Primary Care Provider: Sacha Rojo Rxs /Orders / Referrals /Forms Prescriptions: No Action pantoprazole 40 mg Tablet,Delayed Release (Dr/Ec) 40 mg PO DAILY RF: 0 metformin 1,000 mg Tablet 1,000 mg PO BID RF: 0 aspirin 81 mg Tablet,Chewable 81 mg PO DAILY RF: 0 Status ED Status: Pending Admission Medical Decision Making MDM Narrative Medical decision making narrative: he is status post stent removal presented with complaint of suprapubic pain. He is got a lactic acid of 2.3 without leukocytosis and pyuria. Was started on IV Rocephin for presumptive urine tract infection. The abdomen and pelvis without IV contrast revealed moderate left hydronephrosis and dilatation of unknown etiology as well as multiple nonobstructing calculi in both kidneys. Multiple gallstones also were noted without any right upper quadrant pain nausea or vomiting. Due to the fact the patient stated that he was febrile and met Sirs criteria on arrival was started on Rocephin IV fluids have been given he will be admitted for further evaluation and treatment. Medical Screen Exam Complete: Yes Emergency Medical Condition: Yes Lab Data Lab results reviewed: Yes I reviewed the patient's lab results. Result diagrams: 08/18/18 22:05 08/18/18 22:05 Lab Results 08/18/18 08/18/18 08/18/18 Range/Units 22:05 22:05 22:05 WBC 7.8 (4.0-11.0) th/mm3 RBC 4.22 L (4.50-5.90) mil/mm3 Hgb 12.9 L (13.0-17.0) gm/dL Hct 37.6 L (39.0-51.0) % MCV 89.1 (80.0-100.0) fL MCH 30.5 (27.0-34.0) pg MCHC 34.2 (32.0-36.0) % RDW 13.9 (11.6-17.2) % Plt Count 296 (150-450) th/mm3 MPV 7.7 (7.0-11.0) fL Neut % (Auto) 65.9 (16.0-70.0) % Lymph % (Auto) 19.0 (9.0-44.0) % Cocke % (Auto) 10.2 H (0.0-8.0) % Eos % (Auto) 4.1 H (0.0-4.0) % Baso % (Auto) 0.8 (0.0-2.0) % Neut # (Auto) 5.2 (1.8-7.7) th/mm3 Lymph # (Auto) 1.5 (1.0-4.8) th/mm3 Cocke # (Auto) 0.8 (0.0-0.9) th/mm3 Eos # (Auto) 0.3 (0.0-0.4) th/mm3 Baso # (Auto) 0.1 (0.0-0.2) th/mm3 WBC Differential . Differential Comment Auto diff final Sodium 137 (136-145) meq/L Potassium 3.9 (3.5-5.1) meq/L Chloride 103 (98-107) meq/L Carbon Dioxide 27.0 (21.0-32.0) meq/L Anion Gap 7 (5-15) meq/L BUN 18 (7-18) mg/dL Creatinine 1.07 (0.60-1.30) mg/dL Estimated GFR 67 L (>89) mL/min Random Glucose 105 (74-106) mg/dL Lactic Acid 2.3 H (0.4-2.0) mmol/L Calcium 9.2 (8.5-10.1) mg/dL Troponin I Less than 0.02 L (0.02-0.05) ng/mL Urine Color (Yellw/Straw) Urine Clarity (Clear) Urine pH (5.0-8.5) Ur Specific Notrees (1.002-1.035) Urine Protein (Neg-Trace) mg/dL Urine Glucose (UA) (Negative) mg/dL Urine Ketones (Negative) mg/dL Urine Occult Blood (Negative) Urine Nitrate (Negative) Urine Bilirubin (Negative) Urine Urobilinogen (Less than 2) mg/dL Ur Leukocyte Esterase (Negative) Urine RBC (0-3) /hpf Urine WBC (0-5) /hpf Urine WBC Clumps (None) Urine Bacteria (None) /hpf Hyaline Casts (0-3) /lpf Urine Mucus (Occasional) /lpf Micro UA Comment Ur Microscopic Review Urine Culture Comments 08/18/18 Range/Units 22:05 WBC (4.0-11.0) th/mm3 RBC (4.50-5.90) mil/mm3 Hgb (13.0-17.0) gm/dL Hct (39.0-51.0) % MCV (80.0-100.0) fL MCH (27.0-34.0) pg MCHC (32.0-36.0) % RDW (11.6-17.2) % Plt Count (150-450) th/mm3 MPV (7.0-11.0) fL Neut % (Auto) (16.0-70.0) % Lymph % (Auto) (9.0-44.0) % Cocke % (Auto) (0.0-8.0) % Eos % (Auto) (0.0-4.0) % Baso % (Auto) (0.0-2.0) % Neut # (Auto) (1.8-7.7) th/mm3 Lymph # (Auto) (1.0-4.8) th/mm3 Cocke # (Auto) (0.0-0.9) th/mm3 Eos # (Auto) (0.0-0.4) th/mm3 Baso # (Auto) (0.0-0.2) th/mm3 WBC Differential Differential Comment Sodium (136-145) meq/L Potassium (3.5-5.1) meq/L Chloride (98-107) meq/L Carbon Dioxide (21.0-32.0) meq/L Anion Gap (5-15) meq/L BUN (7-18) mg/dL Creatinine (0.60-1.30) mg/dL Estimated GFR (>89) mL/min Random Glucose (74-106) mg/dL Lactic Acid (0.4-2.0) mmol/L Calcium (8.5-10.1) mg/dL Troponin I (0.02-0.05) ng/mL Urine Color Leonarda (Yellw/Straw) Urine Clarity Hazy H (Clear) Urine pH 5.0 (5.0-8.5) Ur Specific Notrees 1.006 (1.002-1.035) Urine Protein 100 H (Neg-Trace) mg/dL Urine Glucose (UA) Negative (Negative) mg/dL Urine Ketones Negative (Negative) mg/dL Urine Occult Blood Large H (Negative) Urine Nitrate Negative (Negative) Urine Bilirubin Negative (Negative) Urine Urobilinogen Less than 2 (Less than 2) mg/dL Ur Leukocyte Esterase Trace H (Negative) Urine RBC 104 H (0-3) /hpf Urine WBC 42 H (0-5) /hpf Urine WBC Clumps Few H (None) Urine Bacteria Occasional H (None) /hpf Hyaline Casts 1 (0-3) /lpf Urine Mucus Few H (Occasional) /lpf Micro UA Comment Culture indicated Ur Microscopic Review Not Reportable Urine Culture Comments Culture indicated Imaging Data Radiologist's impression: Chest X-Ray 08/18/18 21:41 CONCLUSION: No acute cardiopulmonary disease Abdomen/Pelvis CT 08/19/18 22:24 CONCLUSION: 1. Moderate left hydronephrosis and ureteral dilatation of unknown known etiology. No radiopaque calculi are identified within the ureter or bladder. There are multiple additional nonobstructing calculi in both kidneys as above. There is an 8 mm nonobstructing calculus in the right renal pelvis. 2. Multiple calcified gallstones without biliary ductal dilatation. ECG Data Attestation: I personally reviewed and interpreted this ECG as follows: Interpretation: Sinus rhythm 91 bpm AL interval 158 ms QTC [address]-T wave abnormalities. Leftward axis. NO STEMI
[2018-08-18 22:26] LABS: Bacteria,Urine Occasional /hpf; Bilirubin,Urine Negative (Negative); Clarity,Urine Hazy (Clear); Color,Urine Amber (Yellw/Straw); Glucose,Urine (UA) Negative (Negative); Hyaline Casts,Urine 1 /lpf (0-3); Leukocyte Esterase,Urine Trace (Negative); Mucus,Urine Few /lpf (Occasional); Nitrite,Urine Negative (Negative); Specific Gravity,Urine 1.006 (1.002-1.035)
[2018-08-18 22:51] LABS: Anion Gap 7 meq/L (5-15); Blood Urea Nitrogen 18 mg/dL (7-18); Calcium 9.2 mg/dL (8.5-10.1); Chloride 103 meq/L (98-107); Glomerular Filtration Rate 67 mL/min (>89); Glucose,Random 105 mg/dL (74-106); Potassium 3.9 meq/L (3.5-5.1); Sodium 137 meq/L (136-145)
--- NOTE | 2018-08-19 00:45 | CT ---
EXAM DATE: 08/19/2018 12:15 AM EST AGE/SEX: 73 years / Male INDICATIONS: Low abdomen pain. Post renal stent removal. CLINICAL DATA: This is the patient's initial encounter. Patient reports that signs and symptoms have been present for 1 day and indicates a pain score of 8/10. MEDICAL/SURGICAL HISTORY: Diabetes mellitus type II. Renal calculi. Carcinoma, prostatic. Dmtiri endectomy. Renal stent RADIATION DOSE: 16.25 CTDI (mGy) COMPARISON: [facility] [place] & PELVIS W CONTRAST, 03/28/2018. . TECHNIQUE: Multiple contiguous axial images were obtained through the abdomen. Images were obtained using multiple row detector helical technique. Using automated exposure control and adjustment of the mA and/or kV according to patient size, radiation dose was kept as low as reasonably achievable to o btain optimal diagnostic quality images. DICOM format image data is available electronically for rev iew and comparison. FINDINGS: There is minimal dependent atelectasis in the lungs. No pleural or pericardial effusion. Moderate coronary calcifications. No acute findings in the liver, spleen, adrenals or pancreas. Parti ally calcified gallstones in the gallbladder. Within the right kidney there is an 8 mm calculus in right renal pelvis and an approximately 1 cm jamee culus lower pole right kidney with adjacent tiny calculi. These are nonobstructing. In the left kidney there is a calculus in the lower pole measuring about 9 mm in length. There is mod erate left-sided hydronephrosis and ureteral dilatation. Left ureter complains dilated throughout its course with no radiopaque calculus is identified. No bladder calculi are seen. Radiation seed implants are present in the prostate. CONCLUSION: 1. Moderate left hydronephrosis and ureteral dilatation of unknown known etiology. No radiopaque jamee culi are identified within the ureter or bladder. There are multiple additional nonobstructing calcul i in both kidneys as above. There is an 8 mm nonobstructing calculus in the right renal pelvis. 2. Multiple calcified gallstones without biliary ductal dilatation. Electronically signed by: Ray Ybarra MD 08/19/2018 12:44 AM EST
[2018-08-19] MEDS ORDERED: Sod Chloride 0.9% Inj 1,000 ML IV.SIG ONE (03:35)
[2018-08-19] MEDS ORDERED: Dextrose 50% in Water 50 ML Vial IV.PUSH PRN (04:41)
[2018-08-19] MEDS ORDERED: Bisacodyl 10 MG Supp RECTAL PRN (04:41)
[2018-08-19] MEDS ORDERED: Acetaminophen 325 MG Tablet PO PRN (04:41)
[2018-08-19] MEDS: Sod Chloride 0.9% Inj 1,000 ML IV.CONT SCH ×2 (05:11→11:59)
[2018-08-19] MEDS: Insulin NovoLOG Aspart Correctional Sugar Inj SQ SCH ×4 (08:14→20:45)
[2018-08-19] MEDS: Senna/Docusate Sodium 8.6/50 MG Tablet PO SCH ×2 (08:15→20:43)
--- NOTE | 2018-08-19 11:53 | P.HP ---
History of Present Illness Primary Care Physician: Sacha Rojo MD Chief Complaint: Abdominal pain History of Present Illness: This is a 73-year-old male with a history of DM, remote GI bleed, prostate cancer and kidney stones. Patient reports that he was at his urologist office yesterday for removal of left ureteral stent which was delayed as he was unable to come come up with the payment. He complained of penile discomfort after removal and when he went home developed left lower quadrant pain and gross hematuria. He also felt weak and feverish. In the ED, abdominal CT shows moderate left hydronephrosis and ureteral dilatation. Bilateral kidney calculi. Chest x-ray independently reviewed by me with no acute cardiopulmonary disease. Urinalysis was abnormal with 42 WBC 104 RBC and bacteria. Patient was then started on IV Rocephin. Today he is feeling much better denies abdominal pain with resolved hematuria. All other systems reviewed negative Inpatient Certification: I certify that the inpatient services were ordered in accordance with Medicare regulations governing the order. This includes certification that hospital inpatient services are reasonable and necessary and in the case of services not specified as inpatient-only under 42 CFR 419.22(n), that they are appropriately provided as inpatient services in accordance to with the 2-midnight benchmark under 43 CFR 412.3(e) Estimated Total Length of Stay (Days): 2 Plans for Post Hospital Care: Not yet determined Review of Systems All other systems reviewed negative except as stated in HPI PMFSH - History History Provided By: Patient - Medical History Medical History: Medical History (Last Reviewed 08/19/18 @ 11:47 by Arvind Reddy MD) Diabetes Hernia Kidney stones Melanoma Prostate CA - Surgical History Surgical History: Surgical History (Last Reviewed 08/19/18 @ 11:48 by Arvind Reddy MD) History of renal stent Hx of appendectomy History of hernia repair - Family History Family History: Family History (Last Updated 08/19/18 @ 11:48 by Arvind Reddy MD) Other Family history of diabetes mellitus - Social History I have reviewed the patient's Social History: Yes - Tobacco History Second Hand Smoke Exposure: No Tobacco Use In Past 30 Days: No Smoking Status: Former smoker Tobacco Type: Cigarettes - Alcohol History How Often Do You Have a Drink Containing Alcohol: Never - Substance Use History Substance History: No History of Abuse - Travel History Recent Travel in the [place] Within the Last 8 Weeks: No Recent Travel Out of the Country Within the Last 8 Weeks: No - Immunization History Tetanus Immunization: >5 Years Hx Influenza Vaccine This Season: No Medications and Allergies Active Medications: Active Medications Acetaminophen (Tylenol) 650 mg PO Q4H PRN PRN Reason: Temp > 100.4 Al Hydroxide/Mg Hydroxide (Milk Of Magnesia Liq) 30 ml PO Q12H PRN PRN Reason: Mild Constipation Bisacodyl (Dulcolax Supp) 10 mg RECTAL DAILY PRN PRN Reason: SEVERE CONSITIPATION Dextrose (D50w Vial) 50 ml IV.PUSH UNSCH PRN PRN Reason: PER HYPOGLYCEMIA PROTOCOL Glucagon (Glucagon Inj) 1 mg OTHER PRN PRN PRN Reason: for Hypoglycemia Protocol Ceftriaxone Sodium 1,000 mg/ (Sodium Chloride) 100 mls @ 200 mls/hr IV.SIG Q24H AB Sodium Chloride (Ns Inj) 1,000 mls @ 100 mls/hr IV.CONT .Q10H [facility] Last Admin: 08/19/18 05:11 Dose: 125 mls/hr Insulin Aspart (Novolog Insulin Correctional Sugar Inj) 0 unit SQ ACHS AND 3AM AB; Protocol Last Admin: 08/19/18 08:14 Dose: Not Given Lactulose (Lactulose Liq) 30 ml PO DAILY PRN PRN Reason: SEVERE CONSITIPATION Ondansetron HCl (Zofran Inj) 4 mg IV.PUSH Q6H PRN PRN Reason: NAUSEA OR VOMITING Pantoprazole Sodium (Protonix) 40 mg PO DAILY [facility] Senna/Docusate Sodium (Tiffani-Colace) 1 tab PO BID [facility] Last Admin: 08/19/18 08:15 Dose: 1 tab Sennosides (Senokot) 17.2 mg PO Q12H PRN PRN Reason: Moderate Constipation Allergies Allergy/AdvReac Type Severity Reaction Status Date / Time codeine Allergy Severe burning Verified 08/18/18 21:34 sensation upper trunk area acetaminophen AdvReac Intermediate SHAKING Verified 08/18/18 21:34 hydrocodone AdvReac Intermediate SHAKING Verified 08/18/18 21:34 Home Medications Medication Instructions Recorded Confirmed Type aspirin 81 mg PO DAILY 03/28/18 08/18/18 History metformin 1,000 mg PO BID 03/28/18 08/18/18 History pantoprazole 40 mg PO DAILY 08/02/18 08/18/18 History Exam Vital signs: Vital Signs 08/18/18 21:28 08/18/18 21:55 08/19/18 00:39 Temperature 97.4 F L 98.2 F Pulse Rate 103 H 104 H 85 Respiratory Rate 18 18 16 Blood Pressure 134/80 140/82 136/75 Pulse Oximetry 97 97 100 08/19/18 04:42 08/19/18 05:00 08/19/18 09:00 Temperature 97.9 F 98.4 F 97.8 F Pulse Rate 79 80 78 Respiratory Rate 17 18 17 Blood Pressure 135/75 111/56 L 130/68 Pulse Oximetry 98 96 08/19/18 10:20 Temperature 96.1 F L Pulse Rate 76 Respiratory Rate 16 Blood Pressure 139/77 Pulse Oximetry Intake & Output 08/18/18 08/19/18 08/19/18 18:59 06:59 18:59 Intake Total 1100 / 1100 Balance 1100 / 1100 Weight 90.265 kg Intake: IV 1100 / 1100 NS Inj 1,000 ML @ Wide Open IV. 1000 / 1000 SIG BOLUS ONE Rx#:[id number] Rocephin Inj 1,000 MG In NS Inj 100 / 100 100 ML @ 200 mls/hr IV.SIG ONCE ONE Rx#:[id number] Narrative: GENERAL: Well-developed, well-nourished in no distress SKIN: Warm and dry. HEAD: Atraumatic. Normocephalic. EYES: Pupils equal and round. No scleral icterus. No injection or drainage. ENT: No nasal bleeding or discharge. Mucous membranes pink and moist. NECK: Trachea midline. No JVD. CARDIOVASCULAR: Regular rate and rhythm. RESPIRATORY: No accessory muscle use. Clear to auscultation. Breath sounds equal bilaterally. GASTROINTESTINAL: Abdomen soft, slightly tender left lower quadrant, nondistended. Left CVA tenderness MUSCULOSKELETAL: Extremities without clubbing, cyanosis, or edema. No obvious deformities. NEUROLOGICAL: Awake and alert. No obvious cranial nerve deficits. Motor grossly within normal limits. Five out of 5 muscle strength in the arms and legs. Normal speech. PSYCHIATRIC: Appropriate mood and affect; insight and judgment normal. Results - Labs CBC & Chem 7: 08/18/18 22:05 08/18/18 22:05 Labs: Laboratory Results - last 24 hr 08/18/18 08/18/18 08/18/18 22:05 22:05 22:05 WBC 7.8 RBC 4.22 L Hgb 12.9 L Hct 37.6 L MCV 89.1 MCH 30.5 MCHC 34.2 RDW 13.9 Plt Count 296 MPV 7.7 Neut % (Auto) 65.9 Lymph % (Auto) 19.0 [place] % (Auto) 10.2 H Eos % (Auto) 4.1 H Baso % (Auto) 0.8 Neut # (Auto) 5.2 Lymph # (Auto) 1.5 [place] # (Auto) 0.8 Eos # (Auto) 0.3 Baso # (Auto) 0.1 WBC Differential . Differential Comment Auto diff final Sodium 137 Potassium 3.9 Chloride 103 Carbon Dioxide 27.0 Anion Gap 7 BUN 18 Creatinine 1.07 Estimated GFR 67 L POC Glucose Random Glucose 105 Lactic Acid 2.3 H Calcium 9.2 Troponin I Less than 0.02 L Urine Color Urine Clarity Urine pH Ur Specific [place] Urine Protein Urine Glucose (UA) Urine Ketones Urine Occult Blood Urine Nitrate Urine Bilirubin Urine Urobilinogen Ur Leukocyte Esterase Urine RBC Urine WBC Urine WBC Clumps Urine Bacteria Hyaline Casts Urine Mucus Micro UA Comment Ur Microscopic Review Urine Culture Comments 08/18/18 08/19/18 08/19/18 22:05 05:05 08:11 WBC RBC Hgb Hct MCV MCH MCHC RDW Plt Count MPV Neut % (Auto) Lymph % (Auto) [place] % (Auto) Eos % (Auto) Baso % (Auto) Neut # (Auto) Lymph # (Auto) [place] # (Auto) Eos # (Auto) Baso # (Auto) WBC Differential Differential Comment Sodium Potassium Chloride Carbon Dioxide Anion Gap BUN Creatinine Estimated GFR POC Glucose 114 H Random Glucose Lactic Acid 2.4 H Calcium Troponin I Urine Color Leonarda Urine Clarity Hazy H Urine pH 5.0 Ur Specific [place] 1.006 Urine Protein 100 H Urine Glucose (UA) Negative Urine Ketones Negative Urine Occult Blood Large H Urine Nitrate Negative Urine Bilirubin Negative Urine Urobilinogen Less than 2 Ur Leukocyte Esterase Trace H Urine RBC 104 H Urine WBC 42 H Urine WBC Clumps Few H Urine Bacteria Occasional H Hyaline Casts 1 Urine Mucus Few H Micro UA Comment Culture indicated Ur Microscopic Review Not Reportable Urine Culture Comments Culture indicated - Imaging Impressions Chest X-Ray 08/18/18 21:41 CONCLUSION: No acute cardiopulmonary disease Abdomen/Pelvis CT 08/19/18 22:24 CONCLUSION: 1. Moderate left hydronephrosis and ureteral dilatation of unknown known etiology. No radiopaque calculi are identified within the ureter or bladder. There are multiple additional nonobstructing calculi in both kidneys as above. There is an 8 mm nonobstructing calculus in the right renal pelvis. 2. Multiple calcified gallstones without biliary ductal dilatation. Caprini VTE Risk Assessment Caprini VTE Risk Assessment: Moderate/High Risk (score >= 2) Caprini Risk Assessment Model: Point Value = 1 Point Value = 2 Point Value = 3 Point Value = 5 Age 41-60 Minor surgery BMI > 25 kg/m2 Swollen legs Varicose veins or History of unexplained or recurrent spontaneous Oral contraceptives or hormone replacement Sepsis (< 1 month) Serious lung disease, including pneumonia (< 1 month) Abnormal pulmonary function Acute myocardial infarction Congestive heart failure (< 1 month) History of inflammatory bowel disease Medical patient at bed rest Age 61-74 Arthroscopic surgery Major open surgery (> 45 min) Laparoscopic surgery (> 45 min) Malignancy Confined to bed (> 72 hours) Immobilizing plaster cast Central venous access Age >= 75 History of VTE Family history of VTE Factor V Leiden Prothrombin [id number] Lupus anticoagulant Anticardiolipin antibodies Elevated serum homocysteine Heparin-induced thrombocytopenia Other congenital or acquired thrombophilia Stroke (< 1 month) Elective arthroplasty Hip, pelvis, or leg fracture Acute spinal cord injury (< 1 month) Prophylaxis Regimen: Total Risk Factor Score Risk Level Prophylaxis Regimen 0-1 Low Early ambulation 2 Moderate Order ONE of the following: *Sequential Compression Device (SCD) *Heparin 5000 units SQ BID 3-4 Higher Order ONE of the following medications: *Heparin 5000 units SQ TID *Enoxaparin/Lovenox 40 mg SQ daily (WT < 150 kg, CrCl > 30 mL/min) *Enoxaparin/Lovenox 30 mg SQ daily (WT < 150 kg, CrCl > 10-29 mL/min) *Enoxaparin/Lovenox 30 mg SQ BID (WT < 150 kg, CrCl > 30 mL/min) AND/OR *Sequential Compression Device (SCD) 5 or more Highest Order ONE of the following medications: *Heparin 5000 units SQ TID (Preferred with Epidurals) *Enoxaparin/Lovenox 40 mg SQ daily (WT < 150 kg, CrCl > 30 mL/min) *Enoxaparin/Lovenox 30 mg SQ daily (WT < 150 kg, CrCl > 10-29 mL/min) *Enoxaparin/Lovenox 30 mg SQ BID (WT < 150 kg, CrCl > 30 mL/min) AND *Sequential Compression Device (SCD) Assessment and Plan - Plan This is a 73-year-old male with a history of DM, remote GI bleed, prostate cancer and kidney stones. He presents with left lower quadrant abdominal pain, gross hematuria and dysuria after removal of left ureteral stent . Abdominal CT shows moderate left hydronephrosis and ureteral dilatation. Bilateral kidney calculi. UTI suspect left pyelonephritis and sepsis. Continue IV Rocephin and follow-up blood and urine cultures Left hydronephrosis and left ureteral location with bilateral renal calculi. Renal function within normal limits. has been consulted DVT prophylaxis with SCD and early ambulation Discharge Planning: Discharge patient to home when cleared by Condition on discharge: Improved earlier than anticipated Regular Diet as tolerated Ad Chrissy activity no driving Rx written: Ceftin Follow-up with primary care physician and
--- NOTE | 2018-08-19 12:55 | P.CONURO ---
History of Present Illness Service: Urology Consult date: 08/19/18 Requesting Physician: Lisandra Moya Reason for Consult: UTI. [place] Primary Care Provider: Sacha Rojo MD Chief Complaint: Abdominal pain History of Present Illness: This is a 73-year-old male with a history of DM, remote GI bleed, prostate cancer and kidney stones. Patient reports that he was at his urologist office yesterday for removal of left ureteral stent which was delayed as he was unable to come come up with the payment. He complained of penile discomfort after removal and when he went home developed left lower quadrant pain and gross hematuria. He also felt weak and feverish. In the ED, abdominal CT shows moderate left hydronephrosis and ureteral dilatation. Bilateral kidney calculi. Urinalysis was abnormal with 42 WBC 104 RBC and bacteria. Patient was then started on IV Rocephin. He is currently feeling much better denies abdominal pain with resolved hematuria. Urology consulted He currently feels better. pain ios controlled. no f/c/n/v, no hematuria. Labs are stable. UC pending. No visible ureteral stones, he does have b/l renal stones, non obstructing. Mild to mod left hydro seen possibly related to recent stent removal procedure and inflammation Review of Systems All other systems reviewed negative except as stated in HPI PMFSH - History History Provided By: Patient - Medical History Medical History: Medical History (Last Reviewed 08/19/18 @ 11:47 by Arvind Reddy MD) Diabetes Hernia Kidney stones Melanoma Prostate CA - Surgical History Surgical History: Surgical History (Last Reviewed 08/19/18 @ 11:48 by Arvind Reddy MD) History of renal stent Hx of appendectomy History of hernia repair - Family History Family History: Family History (Last Updated 08/19/18 @ 11:48 by Arvind Reddy MD) Other Family history of diabetes mellitus - Tobacco History Second Hand Smoke Exposure: No Tobacco Use In Past 30 Days: No Smoking Status: Former smoker Tobacco Type: Cigarettes - Alcohol History How Often Do You Have a Drink Containing Alcohol: Never - Substance Use History Substance History: No History of Abuse - Travel History Recent Travel in the [place] Within the Last 8 Weeks: No Recent Travel Out of the Country Within the Last 8 Weeks: No - Immunization History Tetanus Immunization: >5 Years Hx Influenza Vaccine This Season: No Medications and Allergies Active Medications: Active Medications Acetaminophen (Tylenol) 650 mg PO Q4H PRN PRN Reason: Temp > 100.4 Al Hydroxide/Mg Hydroxide (Milk Of Magnesia Liq) 30 ml PO Q12H PRN PRN Reason: Mild Constipation Bisacodyl (Dulcolax Supp) 10 mg RECTAL DAILY PRN PRN Reason: SEVERE CONSITIPATION Dextrose (D50w Vial) 50 ml IV.PUSH UNSCH PRN PRN Reason: PER HYPOGLYCEMIA PROTOCOL Glucagon (Glucagon Inj) 1 mg OTHER PRN PRN PRN Reason: for Hypoglycemia Protocol Ceftriaxone Sodium 1,000 mg/ (Sodium Chloride) 100 mls @ 200 mls/hr IV.SIG Q24H AB Sodium Chloride (Ns Inj) 1,000 mls @ 100 mls/hr IV.CONT .Q10H [facility] Last Admin: 08/19/18 11:59 Dose: 125 mls/hr Insulin Aspart (Novolog Insulin Correctional Sugar Inj) 0 unit SQ ACHS AND 3AM AB; Protocol Last Admin: 08/19/18 11:59 Dose: Not Given Lactulose (Lactulose Liq) 30 ml PO DAILY PRN PRN Reason: SEVERE CONSITIPATION Ondansetron HCl (Zofran Inj) 4 mg IV.PUSH Q6H PRN PRN Reason: NAUSEA OR VOMITING Pantoprazole Sodium (Protonix) 40 mg PO DAILY [facility] Senna/Docusate Sodium (Tiffani-Colace) 1 tab PO BID [facility] Last Admin: 08/19/18 08:15 Dose: 1 tab Sennosides (Senokot) 17.2 mg PO Q12H PRN PRN Reason: Moderate Constipation Allergies Allergy/AdvReac Type Severity Reaction Status Date / Time codeine Allergy Severe burning Verified 08/18/18 21:34 sensation upper trunk area acetaminophen AdvReac Intermediate SHAKING Verified 08/18/18 21:34 hydrocodone AdvReac Intermediate SHAKING Verified 08/18/18 21:34 Home Medications Medication Instructions Recorded Confirmed Type aspirin 81 mg PO DAILY 03/28/18 08/18/18 History metformin 1,000 mg PO BID 03/28/18 08/18/18 History pantoprazole 40 mg PO DAILY 08/02/18 08/18/18 History Physical Exam Vital Signs - 24 hr 08/18/18 21:28 08/18/18 21:55 08/19/18 00:39 Temperature 97.4 F L 98.2 F Pulse Rate 103 H 104 H 85 Respiratory Rate 18 18 16 Blood Pressure 134/80 140/82 136/75 Pulse Oximetry 97 97 100 08/19/18 04:42 08/19/18 05:00 08/19/18 09:00 Temperature 97.9 F 98.4 F 97.8 F Pulse Rate 79 80 78 Respiratory Rate 17 18 17 Blood Pressure 135/75 111/56 L 130/68 Pulse Oximetry 98 96 08/19/18 10:20 Temperature 96.1 F L Pulse Rate 76 Respiratory Rate 16 Blood Pressure 139/77 Pulse Oximetry Physical Exam: GENERAL: This is a well-nourished, well-developed patient, in no apparent distress. SKIN: No rashes, ecchymoses or lesions. Cool and dry. HEAD: Atraumatic. Normocephalic. CARDIOVASCULAR: Regular rate and rhythm without murmurs, gallops, or rubs. RESPIRATORY: Clear to auscultation. Breath sounds equal bilaterally. No wheezes , rales, or rhonchi. GASTROINTESTINAL: Abdomen soft, non-tender, nondistended. GENITOURINARY: No CVAT. MUSCULOSKELETAL: Extremities without clubbing, cyanosis, or edema. N NEUROLOGICAL: Awake and alert. Laboratory Results - last 24 hr 08/18/18 08/18/18 08/18/18 22:05 22:05 22:05 WBC 7.8 RBC 4.22 L Hgb 12.9 L Hct 37.6 L MCV 89.1 MCH 30.5 MCHC 34.2 RDW 13.9 Plt Count 296 MPV 7.7 Neut % (Auto) 65.9 Lymph % (Auto) 19.0 Bond % (Auto) 10.2 H Eos % (Auto) 4.1 H Baso % (Auto) 0.8 Neut # (Auto) 5.2 Lymph # (Auto) 1.5 Bond # (Auto) 0.8 Eos # (Auto) 0.3 Baso # (Auto) 0.1 WBC Differential . Differential Comment Auto diff final Sodium 137 Potassium 3.9 Chloride 103 Carbon Dioxide 27.0 Anion Gap 7 BUN 18 Creatinine 1.07 Estimated GFR 67 L POC Glucose Random Glucose 105 Lactic Acid 2.3 H Calcium 9.2 Troponin I Less than 0.02 L Urine Color Urine Clarity Urine pH Ur Specific [place] Urine Protein Urine Glucose (UA) Urine Ketones Urine Occult Blood Urine Nitrate Urine Bilirubin Urine Urobilinogen Ur Leukocyte Esterase Urine RBC Urine WBC Urine WBC Clumps Urine Bacteria Hyaline Casts Urine Mucus Micro UA Comment Ur Microscopic Review Urine Culture Comments 08/18/18 08/19/18 08/19/18 22:05 05:05 08:11 WBC RBC Hgb Hct MCV MCH MCHC RDW Plt Count MPV Neut % (Auto) Lymph % (Auto) Bond % (Auto) Eos % (Auto) Baso % (Auto) Neut # (Auto) Lymph # (Auto) Bond # (Auto) Eos # (Auto) Baso # (Auto) WBC Differential Differential Comment Sodium Potassium Chloride Carbon Dioxide Anion Gap BUN Creatinine Estimated GFR POC Glucose 114 H Random Glucose Lactic Acid 2.4 H Calcium Troponin I Urine Color Leonarda Urine Clarity Hazy H Urine pH 5.0 Ur Specific [place] 1.006 Urine Protein 100 H Urine Glucose (UA) Negative Urine Ketones Negative Urine Occult Blood Large H Urine Nitrate Negative Urine Bilirubin Negative Urine Urobilinogen Less than 2 Ur Leukocyte Esterase Trace H Urine RBC 104 H Urine WBC 42 H Urine WBC Clumps Few H Urine Bacteria Occasional H Hyaline Casts 1 Urine Mucus Few H Micro UA Comment Culture indicated Ur Microscopic Review Not Reportable Urine Culture Comments Culture indicated 08/19/18 08/19/18 11:56 11:58 WBC RBC Hgb Hct MCV MCH MCHC RDW Plt Count MPV Neut % (Auto) Lymph % (Auto) Bond % (Auto) Eos % (Auto) Baso % (Auto) Neut # (Auto) Lymph # (Auto) Bond # (Auto) Eos # (Auto) Baso # (Auto) WBC Differential Differential Comment Sodium Potassium Chloride Carbon Dioxide Anion Gap BUN Creatinine Estimated GFR POC Glucose 116 H Random Glucose Lactic Acid 1.6 Calcium Troponin I Urine Color Urine Clarity Urine pH Ur Specific [place] Urine Protein Urine Glucose (UA) Urine Ketones Urine Occult Blood Urine Nitrate Urine Bilirubin Urine Urobilinogen Ur Leukocyte Esterase Urine RBC Urine WBC Urine WBC Clumps Urine Bacteria Hyaline Casts Urine Mucus Micro UA Comment Ur Microscopic Review Urine Culture Comments Microbiology 08/18/18 22:10 Aerobic Blood Culture - Preliminary Blood - Peripheral No growth in 1 day Anaerobic Blood Culture - Preliminary No growth in 1 day 08/18/18 22:05 Aerobic Blood Culture - Preliminary Blood - Peripheral No growth in 1 day Anaerobic Blood Culture - Preliminary No growth in 1 day Result Diagrams: 08/18/18 22:05 08/18/18 22:05 Imaging: ITS Impressions Chest X-Ray 08/18/18 21:41 CONCLUSION: No acute cardiopulmonary disease Abdomen/Pelvis CT 08/19/18 22:24 CONCLUSION: 1. Moderate left hydronephrosis and ureteral dilatation of unknown known etiology. No radiopaque calculi are identified within the ureter or bladder. There are multiple additional nonobstructing calculi in both kidneys as above. There is an 8 mm nonobstructing calculus in the right renal pelvis. 2. Multiple calcified gallstones without biliary ductal dilatation. Assessment and Plan - Plan 73y.o m with history as per HPI - No additional intervention needed - Continue care as per Primary team - IV fluids and antbx - Flomax daily - Bladder scan after voiding to r/o retention - Pt to f/u with his Urologist to continue care after discharge Discussed Condition With: Dr Amena SANCHEZ attending
--- NOTE | 2018-08-19 15:26 | ECG ---
Date Performed: 08/18/2018 Time Performed: 22:20:09 PTAGE: 73 years EKG: Sinus rhythm LOW QRS VOLTAGE IN PRECORDIAL LEADS INFERIOR MYOCARDIAL INFARCTION ABNORMAL ECG PREVIOUS TRACING : 03/29/2018 07.44 Since the previous tracing, no significant change noted DOCTOR: Glenna Narayan Interpretating Date/Time 08/19/2018 15:24:55
[2018-08-20] MEDS: Sod Chloride 0.9% Inj 1,000 ML IV.CONT SCH ×2 (02:11→09:37)
[2018-08-20] MEDS: Insulin NovoLOG Aspart Correctional Sugar Inj SQ SCH ×3 (05:52→11:54)
[2018-08-20 08:33] LABS: Baso % (Auto) 0.9 % (0.0-2.0); Eos # (Auto) 0.2 th/mm3 (0.0-0.4); Eos % (Auto) 4.4 % (0.0-4.0); Hematocrit 37.2 % (39.0-51.0); Hemoglobin 12.6 gm/dL (13.0-17.0); Lymph # (Auto) 1.5 th/mm3 (1.0-4.8); Mean Corpuscular Hemoglobin 30.9 pg (27.0-34.0); Mean Corpuscular Volume 90.8 fL (80.0-100.0); Mean Platelet Volume 7.4 fL (7.0-11.0); Mono # (Auto) 0.4 th/mm3 (0.0-0.9); Neut # (Auto) 3.2 th/mm3 (1.8-7.7); Neut % (Auto) 58.7 % (16.0-70.0); Platelet Count 268 th/mm3 (150-450); Red Cell Distribution Width 13.8 % (11.6-17.2); White Blood Count 5.5 th/mm3 (4.0-11.0)
--- NOTE | 2018-08-20 08:36 | P.PN ---
Subjective Interval history: F/u Hematuria. Doing well no voding issues slept good. recommended Flomax( which he tolerated in the past) and bladder scan only 66 ml Physical Exam Vital signs: Vital Signs 08/19/18 09:00 08/19/18 10:20 08/19/18 12:00 Temperature 97.8 F 96.1 F L 97.4 F L Pulse Rate 78 76 74 Respiratory Rate 17 16 18 Blood Pressure 130/68 139/77 140/74 Pulse Oximetry 97 08/19/18 16:00 08/19/18 16:32 08/20/18 00:00 Temperature 96.8 F L 97.5 F L Pulse Rate 80 72 77 Respiratory Rate 20 20 Blood Pressure 151/76 H 129/73 Pulse Oximetry 94 L 95 08/20/18 04:00 Temperature 98.0 F Pulse Rate 90 Respiratory Rate 20 Blood Pressure 136/77 Pulse Oximetry 97 Intake & Output 08/19/18 08/20/18 08/20/18 18:59 06:59 18:59 Intake Total 1000 / 1000 2080 / 2080 Output Total 950 / 950 1400 / 1400 Balance 50 / 50 680 / 680 Weight 91 kg Intake: IV 1000 / 1000 1100 / 1100 NS Inj 1,000 ML @ 100 mls/hr IV 1000 / 1000 1000 / 1000 .CONT .Q10H AB Rx#:[id number] Rocephin Inj 1,000 MG In NS Inj 100 / 100 100 ML @ 200 mls/hr IV.SIG Q24H AB Rx#:[id number] Oral 980 / 980 Output: Urine 950 / 950 1400 / 1400 Other: # Voids 2 Narrative: GENERAL: Well-developed, well-nourished in no distress SKIN: Warm and dry. CARDIOVASCULAR: Regular rate and rhythm. RESPIRATORY: No accessory muscle use. Clear to auscultation. Breath sounds equal bilaterally. GASTROINTESTINAL: Abdomen soft, slightly tender left lower quadrant, nondistended. Left CVA tenderness MUSCULOSKELETAL: Extremities without clubbing, cyanosis, or edema. No obvious deformities. NEUROLOGICAL: Awake and alert. No obvious cranial nerve deficits. Motor grossly within normal limits. Five out of 5 muscle strength in the arms and legs. Normal speech. PSYCHIATRIC: Appropriate mood and affect; insight and judgment normal. Results - Labs CBC & Chem 7: 08/20/18 07:59 08/20/18 07:59 Laboratory Results - last 24 hr 08/19/18 08/19/18 08/19/18 11:56 11:58 17:35 WBC RBC Hgb Hct MCV MCH MCHC RDW Plt Count MPV Neut % (Auto) Lymph % (Auto) Frederick % (Auto) Eos % (Auto) Baso % (Auto) Neut # (Auto) Lymph # (Auto) Frederick # (Auto) Eos # (Auto) Baso # (Auto) WBC Differential Differential Comment POC Glucose 116 H 120 H Lactic Acid 1.6 08/19/18 08/20/18 08/20/18 20:45 03:42 07:59 WBC 5.5 RBC 4.10 L Hgb 12.6 L Hct 37.2 L MCV 90.8 MCH 30.9 MCHC 34.0 RDW 13.8 Plt Count 268 MPV 7.4 Neut % (Auto) 58.7 Lymph % (Auto) 28.0 Frederick % (Auto) 8.0 Eos % (Auto) 4.4 H Baso % (Auto) 0.9 Neut # (Auto) 3.2 Lymph # (Auto) 1.5 Frederick # (Auto) 0.4 Eos # (Auto) 0.2 Baso # (Auto) 0.0 WBC Differential . Differential Comment Auto diff final POC Glucose 189 H 105 Lactic Acid 08/20/18 08:28 WBC RBC Hgb Hct MCV MCH MCHC RDW Plt Count MPV Neut % (Auto) Lymph % (Auto) Frederick % (Auto) Eos % (Auto) Baso % (Auto) Neut # (Auto) Lymph # (Auto) Frederick # (Auto) Eos # (Auto) Baso # (Auto) WBC Differential Differential Comment POC Glucose 112 H Lactic Acid Microbiology 08/18/18 22:05 Clean Catch Urine Urine Culture - Preliminary No growth. 08/18/18 22:10 Blood - Peripheral Aerobic Blood Culture - Preliminary No growth in 1 day 08/18/18 22:10 Blood - Peripheral Anaerobic Blood Culture - Preliminary No growth in 1 day 08/18/18 22:05 Blood - Peripheral Aerobic Blood Culture - Preliminary No growth in 1 day 08/18/18 22:05 Blood - Peripheral Anaerobic Blood Culture - Preliminary No growth in 1 day - Imaging ITS Impressions Chest X-Ray 08/18/18 21:41 CONCLUSION: No acute cardiopulmonary disease Abdomen/Pelvis CT 08/19/18 22:24 CONCLUSION: 1. Moderate left hydronephrosis and ureteral dilatation of unknown known etiology. No radiopaque calculi are identified within the ureter or bladder. There are multiple additional nonobstructing calculi in both kidneys as above. There is an 8 mm nonobstructing calculus in the right renal pelvis. 2. Multiple calcified gallstones without biliary ductal dilatation. - Procedures none Assessment and Plan - Plan This is a 73-year-old male with a history of DM, remote GI bleed, prostate cancer and kidney stones. He presents with left lower quadrant abdominal pain, gross hematuria and dysuria after removal of left ureteral stent . Abdominal CT shows moderate left hydronephrosis and ureteral dilatation. Bilateral kidney calculi. UTI suspect left pyelonephritis and sepsis. Improved switch IV Rocephin to po ceftin and follow-up blood and urine cultures NGTD Left hydronephrosis and left ureteral location with bilateral renal calculi. Renal function within normal limits. has been consulted recommended Flomax. No evidence of urinary retention DVT prophylaxis with SCD and early ambulation Discharge Planning: Discharge patient to home when cleared by Condition on discharge: Improved earlier than anticipated Regular Diet as tolerated Ad Chrissy activity no driving Rx written: Ceftin and flomax Follow-up with primary care physician and tori pending cx
[2018-08-20 08:58] LABS: Anion Gap 5 meq/L (5-15); Blood Urea Nitrogen 11 mg/dL (7-18); Calcium 8.9 mg/dL (8.5-10.1); Carbon Dioxide 26.6 meq/L (21.0-32.0); Chloride 105 meq/L (98-107); Glomerular Filtration Rate Greater Than 89 mL/min (>89); Glucose,Random 116 mg/dL (74-106); Potassium 3.8 meq/L (3.5-5.1); Sodium 137 meq/L (136-145)
[2018-08-20] MEDS: Senna/Docusate Sodium 8.6/50 MG Tablet PO SCH (09:36)
== END 2018-08-20 14:45 | disposition home or self-care (01) ==
LOC: NEPC 20:47 → NEDA 08-19 03:33 → H7ONC 08-19 09:00
PROVIDERS: ADMIT Internal Medicine; ATTEND Internal Medicine